=== PATIENT | male | born 1960 | race Caucasian/White ===

== ENCOUNTER → 2017-02-06 | Outpatient (CLI) | payer OTHER, SELFPAY | PROVIDERS: Visit Provider Nurse Practitioner Family | DX: Z79.899 Other long term (current) drug therapy (principal) | CPT/HCPCS: 80305 ==

== ENCOUNTER → 2017-02-11 | Outpatient (CLI) | payer OTHER, SELFPAY | PROVIDERS: Family Provider Emergency Medicine; Visit Provider Nurse Practitioner Family | DX: M25.511 Pain in right shoulder (principal) | CPT/HCPCS: 73030 ==

== ENCOUNTER → 2017-03-06 13:27 | Outpatient (CLI) | payer MEDICAID, SELFPAY ==
[2017-03-06 18:45] LABS: Amphetamine/Metha Screen,Urine Negative ng/mL (<1000); Barbiturates Screen,Urine Negative ng/mL (<200); Benzodiazepines Screen,Urine Positive ng/mL (200); Cannabinoid Screen,Urine Negative ng/mL (<50); Cocaine Screen,Urine Negative ng/g (<300); Methadone Screen,Urine Negative ng/mL (<300); Opiate Screen,Urine Negative ng/mL (<300); Phencyclidine Screen,Urine Negative ng/mL (<25)
== END ==
PROVIDERS: Visit Provider Nurse Practitioner Family
DX: Z79.899 Other long term (current) drug therapy (principal)
CPT/HCPCS: 80305

== ENCOUNTER → 2017-04-01 16:31 | Outpatient (REF) | payer MEDICAID, SELFPAY ==
[2017-04-01 18:56] LABS: Amphetamine/Metha Screen,Urine Negative ng/mL (<1000); Barbiturates Screen,Urine Negative ng/mL (<200); Benzodiazepines Screen,Urine Positive ng/mL (200); Cannabinoid Screen,Urine Negative ng/mL (<50); Cocaine Screen,Urine Negative ng/g (<300); Methadone Screen,Urine Negative ng/mL (<300); Opiate Screen,Urine Negative ng/mL (<300); Phencyclidine Screen,Urine Negative ng/mL (<25)
== END ==
LOC: LAB 16:31
PROVIDERS: Visit Provider Nurse Practitioner Family
DX: Z79.899 Other long term (current) drug therapy (principal)
CPT/HCPCS: 80305

== ENCOUNTER → 2017-04-28 11:31 | Outpatient (REF) | payer MEDICAID, SELFPAY ==
[2017-04-28 14:35] LABS: Amphetamine/Metha Screen,Urine Negative ng/mL (<1000); Barbiturates Screen,Urine Negative ng/mL (<200); Benzodiazepines Screen,Urine Positive ng/mL (200); Cannabinoid Screen,Urine Negative ng/mL (<50); Cocaine Screen,Urine Negative ng/g (<300); Methadone Screen,Urine Negative ng/mL (<300); Opiate Screen,Urine Negative ng/mL (<300); Phencyclidine Screen,Urine Negative ng/mL (<25)
== END ==
LOC: LAB 11:31
PROVIDERS: Visit Provider Nurse Practitioner Family
DX: Z79.899 Other long term (current) drug therapy (principal)
CPT/HCPCS: 80305

== ENCOUNTER → 2017-05-29 10:07 | Outpatient (CLI) | payer MEDICAID, SELFPAY ==
[2017-05-29 14:27] LABS: Amphetamine/Metha Screen,Urine Negative ng/mL (<1000); Barbiturates Screen,Urine Negative ng/mL (<200); Benzodiazepines Screen,Urine Positive ng/mL (200); Cannabinoid Screen,Urine Negative ng/mL (<50); Cocaine Screen,Urine Negative ng/g (<300); Methadone Screen,Urine Negative ng/mL (<300); Opiate Screen,Urine Negative ng/mL (<300); Phencyclidine Screen,Urine Negative ng/mL (<25)
== END ==
PROVIDERS: Visit Provider Nurse Practitioner Family
DX: Z79.899 Other long term (current) drug therapy (principal)
CPT/HCPCS: 80305

== ENCOUNTER → 2017-06-27 09:18 | Outpatient (CLI) | payer MEDICAID, SELFPAY ==
[2017-06-27 14:10] LABS: Amphetamine/Metha Screen,Urine Negative ng/mL (<1000); Barbiturates Screen,Urine Negative ng/mL (<200); Benzodiazepines Screen,Urine Positive ng/mL (200); Cannabinoid Screen,Urine Negative ng/mL (<50); Cocaine Screen,Urine Negative ng/g (<300); Methadone Screen,Urine Negative ng/mL (<300); Opiate Screen,Urine Negative ng/mL (<300); Phencyclidine Screen,Urine Negative ng/mL (<25)
== END ==
PROVIDERS: Visit Provider Nurse Practitioner Family
DX: Z79.899 Other long term (current) drug therapy (principal)
CPT/HCPCS: 80305

== ENCOUNTER → 2017-07-31 09:29 | Outpatient (REF) | payer MEDICAID, SELFPAY ==
[2017-07-31 15:25] LABS: Amphetamine/Metha Screen,Urine Negative ng/mL (<1000); Barbiturates Screen,Urine Negative ng/mL (<200); Benzodiazepines Screen,Urine Negative ng/mL (200); Cannabinoid Screen,Urine Negative ng/mL (<50); Cocaine Screen,Urine Negative ng/g (<300); Methadone Screen,Urine Negative ng/mL (<300); Opiate Screen,Urine Negative ng/mL (<300); Phencyclidine Screen,Urine Negative ng/mL (<25)
== END ==
LOC: LAB 09:29
PROVIDERS: Visit Provider Nurse Practitioner Family
DX: Z79.899 Other long term (current) drug therapy (principal)
CPT/HCPCS: 80305

== ENCOUNTER → 2017-08-26 14:01 | Outpatient (POV) | payer MEDICAID, SELFPAY | PROVIDERS: Family Provider Emergency Medicine; PCP Emergency Medicine; Visit Provider Internal Medicine | DX: Z00.00 Encounter for general adult medical examination without abnormal findings (principal) ==

== ENCOUNTER → 2017-09-15 12:56 | Outpatient (CLI) | payer MEDICAID, SELFPAY ==
[2017-09-15 03:45] VITALS: PULSE 57; PULSE 62
[2017-09-15 14:10] VITALS: BP 120/72; BP 130/78; PULSE 57; PULSE 69; RESP 16; RESP 18; O2SAT 94; O2SAT 97
--- NOTE | 2017-09-15 14:19 | CI_ITS ---
Cerebrovascular Exam Indications: 785.9 Bruit. IMPRESSIONS 1. The bilateral vertebral arteries are patent with normal antegrade flow. 2. Study suggests less than 20% stenosis involving the right internal carotid artery and the left internal carotid artery. History: Syncope. Risk factors: Current tobacco use. Carotid duplex study. Complete study and Doppler flow study including spectral analysis, color and su scale imaging. Location: Vascular laboratory. Patient status: Outpatient. Tables: Arterial flow: + +--------+--------+ Location V sys V ed + +--------+--------+ Right CCA - proximal 69.9cm/s 19.6cm/s + +--------+--------+ Right CCA - distal 78.6cm/s 22.8cm/s + +--------+--------+ Right ECA 76.2cm/s -------- + +--------+--------+ Right ICA - proximal 81.7cm/s 28.3cm/s + +--------+--------+ Right ICA - mid 114cm/s 40.1cm/s + +--------+--------+ Right ICA - distal 119cm/s 45.6cm/s + +--------+--------+ Right vertebral 51.1cm/s -------- + +--------+--------+ Left CCA - proximal 99.8cm/s 32.2cm/s + +--------+--------+ Left CCA - distal 81.7cm/s 22.8cm/s + +--------+--------+ Left ECA 74.6cm/s -------- + +--------+--------+ Left ICA - proximal 77cm/s 25.9cm/s + +--------+--------+ Left ICA - mid 93.5cm/s 32.2cm/s + +--------+--------+ Left ICA - distal 98.2cm/s 36.1cm/s + +--------+--------+ Left vertebral 59.7cm/s -------- + +--------+--------+ Velocity ratios: + + + + + + Right, V sys Right, V ed Left, V sys Left, V ed + + + + + + Max ICA/dist CCA 1.51 2 1.2 1.58 + + + + + + (Report amended ) Electronically signed by: Fito Burgos [id number]
== END ==
PROVIDERS: Family Provider Emergency Medicine; PCP Emergency Medicine; Visit Provider Internal Medicine
DX: R09.89 Other specified symptoms and signs involving the circulatory and respiratory systems (principal); R53.83 Other fatigue; J44.0 Chronic obstructive pulmonary disease with (acute) lower respiratory infection; F17.200 Nicotine dependence, unspecified, uncomplicated
CPT/HCPCS: 93880; 94060; 94618; 94640; 94726; 94729

== ENCOUNTER → 2017-09-22 15:14 | Outpatient (CLI) | payer MEDICAID, SELFPAY ==
--- NOTE | 2017-09-22 15:17 | CT_ITS ---
CT lung screening EXAM: CT LUNG LOW DOSE WO CONTRAST HISTORY: 57-year-old male, current smoker with greater than 30 pack-year smoking history asymptomatic ITS.REASON: CURRENT TOBACCO USE ORDERING PHYSICIAN: Aguilar Teague MD PATIENT AGE: 57 years COMPARISON: None TECHNIQUE: The exam was performed on a GE Light Speed [address] scanner using 2.90 mGy CTDI. A low dose helical CT CHEST was performed on a multi-detector scanner. All CT scans at the facility use one or more dose reduction, viz: automated exposure control, ma/kV adjustment per patient size (including targeted exams where dose is matched to indication, i.e. head), or iterative reconstruction technique. The LDCT was performed in a facility that meets the criteria for the screening program. Data regarding this exam was submitted to ACR which is an approved registry. The order for this exam indicates that it came as a result of a lung cancer screening counseling shard decision-making visit that included all the elements required of such a visit including smoking cessation. The radiologist interpreting this exam meets the CMS criteria for the LDCT lung cancer screening program. The exam is reported using the Lung-RADS classification scale and reported to the ACR registry. NOTE: This study was performed for the specific purposes of lung cancer screening and is not an alternative to diagnostic chest CT. RADIATION DOSE: CTDI vol(CT dose Index-volume) = 2.90mG DLP (Dose Length Product) = 107.74 mGcm FINDINGS: Centrilobular emphysema 6 mm noncalcified nodule central aspect right upper lobe. 3 mm noncalcified nodule along the minor fissure. 3 mm noncalcified nodule right upper lobe posteriorly. 5 mm noncalcified nodule central aspect left upper lobe 4 mm noncalcified nodule in the lingula. 3 mm noncalcified nodule in the lingula. 3 mm noncalcified nodule left lung base. Calcified granulomas present in the left lower lobe. IMPRESSION: 1. Lung RADS Category: 3, probably benign 2. Other findings: Centrilobular emphysema, old granulomatous disease RECOMMENDATIONS: 6 month LDCT follow-up
== END ==
PROVIDERS: Family Provider Emergency Medicine; PCP Emergency Medicine; Visit Provider Internal Medicine
DX: Z12.2 Encounter for screening for malignant neoplasm of respiratory organs (principal); Z87.891 Personal history of nicotine dependence

== ENCOUNTER → 2017-10-02 16:23 | Outpatient (REF) | payer MEDICAID, SELFPAY ==
[2017-10-02 18:16] LABS: Basophils % 0.7 % (0.1-2.0); Eosinophils # 0.3 K/mm3 (0.0-0.4); Eosinophils % 5.3 % (0.1-12.0); Hematocrit 40.8 % (42.0-52.0); Hemoglobin 13.5 g/dL (14.1-18.0); Lymphocytes # 2.4 K/mm3 (0.7-4.5); Lymphocytes % 41.3 K/mm3 (10-50); Mean Corpuscular HGB Conc 32.9 g/dL (31.8-35.4); Mean Corpuscular Hemoglobin 30.6 pg (27.0-31.2); Mean Corpuscular Volume 92.8 fl (80-94); Mean Platelet Volume 8.3 fl (7.4-10.4); Monocytes # 0.3 K/mm3 (0.1-1.0); Monocytes % 4.8 % (1.7-9.3); Neutrophils # 2.8 K/mm3 (1.8-7.8); Neutrophils % 47.9 % (37.0-80.0); Platelet Count 163 K/mm3 (142-424); White Blood Count 5.9 K/mm3 (4.8-10.8)
[2017-10-02 18:39] LABS: Alanine Aminotransferase 24 U/L (12-78); Albumin/Globulin Ratio 1.3 (1.1-1.8); Alkaline Phosphatase 60 U/L (46-116); Anion Gap 12.3 mEq/L (5-15); Aspartate Amino Transferase 17 U/L (15-37); Bilirubin,Total 0.3 mg/dL (0.2-1.0); Blood Urea Nitrogen 8 mg/dL (7-18); Calcium 8.9 mg/dL (8.5-10.1); Carbon Dioxide 29 mmol/L (21.0-32.0); Chloride 105 mmol/L (98-107); Chol/HDL Ratio 5.1 (1-3.5); Cholesterol 190 mg/dL (140-200); Creatinine,Serum 0.92 mg/dL (0.70-1.30); Estimated Glomerular Filt Rate 85 ml/min (>60); Free T4 (Free Thyroxine) 0.97 ng/dl (0.76-1.46); GFR (African American) 103 ML/MIN (>60); Glucose 86 mg/dL (74-106); HDL Cholesterol 37 mg/dL (27-67); LDL Cholesterol 132 mg/dL (0-130); Potassium 4.3 mmoL/L (3.5-5.1); Sodium 142 mmol/L (136-145); Thyroid Stimulating Hormone 1.53 uIU/ml (0.358-3.740); Triglycerides 105 mg/dL (30-200); VLDL Cholesterol 21 mg/dL (0-40)
[2017-10-02 18:43] LABS: Hemoglobin A1C 5.9 % (0.0-7.0)
[2017-10-04 18:40] LABS: Vitamin D 25 Hydroxy 50.3 ng/mL (30.0-100.0)
[2017-10-04 18:41] LABS: Vitamin B12 634 pg/mL (232-1245)
[2017-10-08 10:58] LABS: Testosterone,Free 3.4 pg/mL (7.2-24.0)
[2017-10-10 08:24] LABS: Testosterone, Total, LC/MS 646.1 ng/dL (264.0-916.0)
== END ==
LOC: LAB 16:23
PROVIDERS: Visit Provider Nurse Practitioner Family
DX: R53.83 Other fatigue (principal); M54.9 Dorsalgia, unspecified; R10.9 Unspecified abdominal pain; M79.604 Pain in right leg; M79.605 Pain in left leg
CPT/HCPCS: 80053; 80061; 82607; 82652; 83036; 84402; 84403; 84439; 84443; 85025

== ENCOUNTER → 2017-10-21 15:37 | Outpatient (POV) | payer MEDICAID, SELFPAY | PROVIDERS: Family Provider Emergency Medicine; PCP Emergency Medicine; Visit Provider Internal Medicine | DX: Z00.00 Encounter for general adult medical examination without abnormal findings (principal) ==

== ENCOUNTER → 2018-06-23 16:46 | Outpatient (CLI) | payer MEDICAID, SELFPAY ==
[2018-06-23 17:22] LABS: Basophils % 0.7 % (0.1-2.0); Eosinophils # 0.3 K/mm3 (0.0-0.4); Eosinophils % 4.6 % (0.1-12.0); Hematocrit 39.7 % (42.0-52.0); Hemoglobin 13.3 g/dL (14.1-18.0); Lymphocytes # 2.2 K/mm3 (0.7-4.5); Lymphocytes % 33.8 % (10-50); Mean Corpuscular HGB Conc 33.5 g/dL (31.8-35.4); Mean Corpuscular Volume 92.6 fl (80-94); Monocytes # 0.3 K/mm3 (0.1-1.0); Neutrophils # 3.6 K/mm3 (1.8-7.8); Neutrophils % 55.9 % (37.0-80.0); Platelet Count 182 K/mm3 (142-424); Red Blood Count 4.29 M/mm3 (4.60-6.20); Red Cell Distribution Width 12.9 % (11.5-17.5); White Blood Count 6.4 K/mm3 (4.8-10.8)
[2018-06-23 18:39] LABS: Erythrocyte Sedimentation Rate 10 mm/hr (0-20)
[2018-06-23 18:55] LABS: Chloride 105 mmol/L (98-107); Potassium 4.8 mmoL/L (3.5-5.1)
[2018-06-23 19:07] LABS: Alanine Aminotransferase 26 U/L (12-78); Albumin Level 4.2 gm/dL (3.4-5.0); Albumin/Globulin Ratio 1.4 (1.1-1.8); Alkaline Phosphatase 60 U/L (46-116); Anion Gap 11.8 mEq/L (5-15); Aspartate Amino Transferase 19 U/L (15-37); Bilirubin,Total 0.4 mg/dL (0.2-1.0); Blood Urea Nitrogen 9 mg/dL (7-18); Calcium 8.8 mg/dL (8.5-10.1); Carbon Dioxide 30 mmol/L (21.0-32.0); Creatinine,Serum 1.11 mg/dL (0.70-1.30); Estimated Glomerular Filt Rate 69 ml/min (>60); GFR (African American) 83 ML/MIN (>60); Globulin 3.1 gm/dl (1.3-3.2); Glucose 84 mg/dL (74-106); Sodium 142 mmol/L (136-145); Total Protein,Serum 7.3 gm/dL (6.4-8.2)
[2018-06-23 19:11] LABS: C-Reactive Protein < 0.2 mg/L (0.0-0.9)
[2018-06-25 14:24] LABS: Anti-Centromere B Antibodies <0.2 AI (0.0-0.9); Anti-Jo-1 <0.2 AI (0.0-0.9); Anti-Smith Antibody <0.2 AI (0.0-0.9); Antichromatin Antibodies <0.2 AI (0.0-0.9); Antiscleroderma-70 Antibodies <0.2 AI (0.0-0.9); RNP Antibodies 0.4 AI (0.0-0.9); Sjogren's Anti-SS-A <0.2 AI (0.0-0.9); Sjogren's Anti-SS-B <0.2 AI (0.0-0.9)
[2018-06-26 02:04] LABS: PTT-LA 39.2 sec (0.0-51.9); dRVVT 41.6 sec (0.0-47.0)
[2018-06-26 06:21] LABS: Anti-DNA (DS) Ab Qn <1 IU/mL (0-9); PSA, Free 0.25 ng/mL; Prostate Specific Ag 0.7 ng/mL (0.0-4.0); RA Latex Turbid. <10.0 IU/mL (0.0-13.9); Vitamin D 25 Hydroxy 36.4 ng/mL (30.0-100.0)
[2018-06-26 06:23] LABS: Lupus Reflex Interpretation Comment: (.)
[2018-06-27 09:12] LABS: Anti-Cyclic Citrullinated Pept <1 units (0-19)
== END ==
PROVIDERS: Visit Provider Nurse Practitioner Family
DX: F41.9 Anxiety disorder, unspecified (principal); R53.83 Other fatigue
CPT/HCPCS: 36415; 80053; 82652; 84153; 84154; 85025; 85613; 85651; 86140; 86200; 86225; 86235; 86431

== ENCOUNTER → 2018-08-06 11:05 | Outpatient (CLI) | payer MEDICAID, SELFPAY ==
--- NOTE | 2018-08-06 11:10 | XR_ITS ---
XR hip RT 2-3V w/pelvis HISTORY: ITS.REASON: hip pain ORDERING PHYSICIAN: Jacoby Hickey APRN PATIENT AGE: 58 years COMPARISON: None FINDINGS: No fracture or dislocation. No lytic or blastic change. There are minimal osteoarthritic changes. IMPRESSION: Minimal osteoarthritis otherwise negative
--- NOTE | 2018-08-06 11:10 | XR_ITS ---
EXAM: XR lumbar spine min 4V HISTORY: Low back pain ITS.REASON: hip pain ORDERING PHYSICIAN: Jacoby Hickey APRN PATIENT AGE: 58 years COMPARISON: 06/01/2008 FINDINGS: Normal alignment. No fracture or dislocation. No lytic or blastic change. There is mild chronic wedging of L3 similar to the previous exam with loss of height anteriorly of approximately 15%. Degenerative disc disease is present at L5-S1. No lytic or blastic change. IMPRESSION: Degenerative disc disease L5-S1. Mild chronic wedging of L3
[2018-08-06 11:48] LABS: Hematocrit 42.8 % (42.0-52.0); Hemoglobin 13.6 g/dL (14.1-18.0)
== END ==
PROVIDERS: PCP Emergency Medicine; Visit Provider Nurse Practitioner Family
DX: M79.604 Pain in right leg (principal); R53.83 Other fatigue; D64.9 Anemia, unspecified
CPT/HCPCS: 36415; 72110; 73502; 85014; 85018

== ENCOUNTER → 2018-08-19 13:09 | Outpatient (CLI) | payer MEDICAID, SELFPAY ==
--- NOTE | 2018-08-19 13:16 | CT_ITS ---
CT chest wo con HISTORY: Follow-up pulmonary nodules, smoker ITS.REASON: 6 mth f/u abn CT chest ORDERING PHYSICIAN: Jacoby Hickey APRN PATIENT AGE: 58 years COMPARISON: 09/22/2017 Technique: Axial images were obtained. Sagittal, and coronal reformatted images are also generated and reviewed. All CT scans at the facility use one or more dose reduction, viz: automated exposure control, ma/kV adjustment per patient size (including targeted exams where dose is matched to indication, i.e. head), or iterative reconstruction technique. FINDINGS: Scattered small nodes are present in the mediastinum which are not significant change. Normal heart size. No mediastinal or hilar mass. No central obstructing lesion. COPD with bronchial thickening. No change in the small scattered bilateral pulmonary nodular densities. Calcified granuloma is present in the superior segment of left lower lobe unchanged. No new nodules are evident. No effusions or infiltrates. There may be some small lymph nodes in the left para-aortic region the upper abdomen versus unopacified bowel. IMPRESSION: 1. Stable CT appearance of the chest. No change in small bilateral pulmonary nodules. Suggest continued 12 month follow-up in this patient with positive smoking history 2. COPD with bronchial thickening
== END ==
PROVIDERS: PCP Nurse Practitioner Family; Visit Provider Nurse Practitioner Family
DX: R91.8 Other nonspecific abnormal finding of lung field (principal)
CPT/HCPCS: 71250

== ENCOUNTER 2019-11-25 21:36 | Emergency (ER) | payer MEDICAID, SELFPAY ==
--- NOTE | 2019-11-25 21:40 | ECG_ITS ---
APPROVED REPORT Exam: Resting ECG HR:72 bpm ECG Measurements Heart Rate 72 AXES [place] 166 P 78 QRSd 78 QRS 74 QT 370 T 73 QTc 405 Conclusion Normal sinus rhythm Minimal voltage criteria for LVH, may be normal variant Borderline ECG Electronically signed by : Carlos Manuel Pagan, 11/26/2019 13:42:24
[2019-11-25 21:45] VITALS: BP 141/75; RESP 16; TEMP 36.8; O2SAT 98; BMI 24.1
--- NOTE | 2019-11-25 21:56 | XR_ITS ---
PROCEDURE: XR CHEST 2V CLINICAL HISTORY: chest discomfort COMPARISON: CR CXR CHEST(2 VIEWS-NOT PORTABLE) from 11/07/2015 CR CXR2 CHEST-AP VIEW ONLY from 12/07/2015 CR CXR CHEST(2 VIEWS-NOT PORTABLE) from 08/16/[address] ANGIO CHEST from 11/25/2019 FINDINGS: The cardiomediastinal silhouette and pulmonary vascularity are within normal limits. The lungs are clear without infiltrates, suspicious nodules, or pleural effusions. No acute bony abnormalities. IMPRESSION: No acute findings. Dictated by: Fito Burgos MD 11/26/2019 04:36 Fito Burgos MD in [place] 11/26/2019 04:36
[2019-11-25 22:05] LABS: Basophils # 0.1 K/mm3 (0-0.2); Basophils % 1.1 % (0.1-2.0); Chloride 104 mmol/L (98-107); Eosinophils # 0.4 K/mm3 (0.0-0.4); Eosinophils % 4.1 % (0.1-12.0); Hematocrit 41.4 % (42.0-52.0); Hemoglobin 12.8 g/dL (14.1-18.0); Lymphocytes # 2.8 K/mm3 (0.7-4.5); Lymphocytes % 32.7 % (10-50); Mean Corpuscular Hemoglobin 28.8 pg (27.0-31.2); Mean Corpuscular Volume 92.7 fl (80-94); Monocytes # 0.5 K/mm3 (0.1-1.0); Monocytes % 6.2 % (1.7-9.3); Neutrophils # 4.8 K/mm3 (1.8-7.8); Neutrophils % 55.9 % (37.0-80.0); Platelet Count 208 K/mm3 (142-424); Potassium 3.8 mmoL/L (3.5-5.1); Red Blood Count 4.47 M/mm3 (4.60-6.20); Red Cell Distribution Width 13.1 % (11.5-17.5); Sodium 140 mmol/L (136-145); White Blood Count 8.6 K/mm3 (4.8-10.8)
[2019-11-25 22:08] LABS: Anion Gap 11.8 mEq/L (5-15); Blood Urea Nitrogen 10 mg/dl (9-20); Calcium 9.2 mg/dl (8.4-10.2); Carbon Dioxide 28 mmol/L (22.0-30.0); Creatinine Clearance Estimated 84 mL/min (50-200); Estimated Glomerular Filt Rate 87 ml/min (>60); GFR (African American) 105 ML/MIN (>60); Glucose 96 mg/dl (74-100)
--- NOTE | 2019-11-25 22:20 | [facility].EDCP ---
ED Disposition Clinical Impression: Chest pain Qualifiers: Chest pain type: precordial pain Qualified Code(s): R07.2 - Precordial pain Disposition: Home, Self-Care Condition on Discharge: Good Instructions: DI for Atypical Chest Pain Additional Instructions: see card in am and pcp next week Referrals: PCP,No [Primary Care Provider] - - Critical Care Critical Care Time: No Attestation: On 11/25/19, the high probability of a clinically significant, sudden or life threatening deterioration of the following system(s) required my full and direct attention, intervention and personal management. The time I documented below is in addition to time spent performing reported procedures but includes the following listed in this critical care notation. Medical Decision Making - Medical Records Medical records reviewed: Yes: I reviewed the patient's medical records. - Luis Inquiry Pt receiving controlled substance: No Vital Signs: 11/25/19 21:45 11/25/19 22:43 11/26/19 00:02 Temperature 98.2 F Temperature Source Oral Pulse Rate [Left Radial] 66 69 Respiratory Rate 16 18 18 Blood Pressure [Right Arm] 141/75 H 127/62 116/59 L Blood Pressure Mean [Right Arm] 97 83 78 Blood Pressure Source [Right Arm] Automatic Cuff Blood Pressure Position [Right Arm] Sitting 02 Sat by Pulse Oximetry 98 94 L 94 L Oxygen Delivery Method Room Air Room Air - Lab Data Lab results reviewed: Yes: I reviewed the patient's lab results. Lab Results 11/25/19 21:52: WBC 8.6, RBC 4.47 L, Hgb 12.8 L, Hct 41.4 L, MCV 92.7, MCH 28.8, MCHC 31.0 L, RDW 13.1, Plt Count 208, MPV 8.0, Neut % (Auto) 55.9, Lymph % (Auto) 32.7, [place] % (Auto) 6.2, Eos % (Auto) 4.1, Baso % (Auto) 1.1, Neut # (Auto) 4.8, Lymph # (Auto) 2.8, [place] # (Auto) 0.5, Eos # (Auto) 0.4, Baso # (Auto) 0.1 11/25/19 21:52: Troponin I < 0.01 11/25/19 21:52: Sodium 140, Potassium 3.8, Chloride 104, Carbon Dioxide 28, Anion Gap 11.8, BUN 10, Creatinine 0.90, Estimated Creat Clear 84, Estimated GFR 87, Est GFR ( Amer) 105, Glucose 96, Calcium 9.2 Result diagrams: 11/25/19 21:52 11/25/19 21:52 Orders (Tests/Meds): ED MEDICATIONS Generic Name Dose Route Start Last Admin Trade Name Freq PRN Reason Stop Dose Admin Sodium Chloride 1,000 mls @ 999 mls/hr 11/25/19 23:45 11/25/19 23:55 Sod Chlor 0.9% 1000ml Bag IV 11/26/19 00:45 999 mls/hr .Q1H1M ALLEN Administration Sodium Chloride 1,000 mls @ 999 mls/hr 11/25/19 21:55 11/25/19 21:57 Sod Chlor 0.9% 1000ml Bag IV 11/25/19 22:55 999 mls/hr .Q1H1M ALLEN Administration Discontinued Medications Generic Name Dose Route Start Last Admin Trade Name Freq PRN Reason Stop Dose Admin Ioversol 70 ml 11/25/19 23:57 11/25/19 23:30 Ioversol-350 (74%) 100ml Vial IV 11/25/19 23:58 70 ml ONCE ONE Administration Protocol Methylprednisolone Sodium Succinate 125 mg 11/25/19 21:56 11/25/19 22:27 Methylprednisolone Sod Succ 125mg Vial IV 11/25/19 21:57 125 mg ONCE ONE Administration Sodium Chloride 40 ml 11/25/19 23:57 11/25/19 23:30 0.9 % Sodium Chloride 50 Ml Vial IV 11/25/19 23:58 40 ml ONCE ONE Administration Sodium Chloride 10 ml 11/25/19 23:57 11/25/19 23:30 Sodium Chloride 0.9% 10ml Syr (Rad Only) IV 11/25/19 23:58 10 ml ONCE ONE Administration ORDERS Category Date Time Status CT Chest w/PE protocol [CT angio chest] Stat Cat Scan 11/25/19 22:54 Taken Chest XR 2 view (NOT portable) [XR chest 2V] Stat Exams 11/25/19 21:56 Taken Covid-19 IgG/IgM (H) Stat Lab 11/25/19 23:57 Ordered Troponin I Q3H Lab 11/26/19 01:00 Ordered Troponin I Q3H Lab 11/26/19 04:00 Ordered - Radiology Data #1 Image(s): Chest Image Reviewed: Yes I reviewed the patient's radiology image Preliminary Findings: Normal/NAD - CT Data CT Scan: Chest Time Received: 00:[address] Reviewed: Yes: I have viewed the radiologist's interpretation Preliminary Findings: No
[2019-11-25 22:21] LABS: Troponin I < 0.01 ng/ml (0.00-0.034)
[2019-11-25 22:43] VITALS: BP 127/62; PULSE 66; RESP 18; O2SAT 94
--- NOTE | 2019-11-25 22:54 | CT_ITS ---
PROCEDURE: CT ANGIO CHEST CLINCIAL INDICATION: CHEST PAIN COMPARISON: CR XR CHEST 2V from 11/25/2019 TECHNIQUE: IV Contrast: 70ML OPTIRAY 350 Axial images obtained with sagittal and coronal reformats. All CT scans at the facility use one or more dose reduction, viz: automated exposure control, ma/kV adjustment per patient size (including targeted exams where dose is matched to indication, i.e. head), or iterative reconstruction technique. FINDINGS: HEART AND MEDIASTINAL STRUCTURES: No evidence of pulmonary embolus, aortic aneurysm, or aortic dissection. No mediastinal or hilar mass or adenopathy. LUNGS AND PLEURAL SPACES: No lobar consolidation or collapse. There is some mild diffuse bronchial thickening. The noncalcified 4 mm nodules present in the left upper lobe image 53 series 3 BONY STRUCTURES: No acute bony abnormalities apparent. UPPER ABDOMEN: Unremarkable. ADDITIONAL FINDINGS: No other significant abnormalities. IMPRESSION: No evidence of pulmonary embolus. Mild diffuse bronchial thickening suggesting bronchitis. 4 mm left upper lobe nodule. Consider six-month follow-up to confirm stability. Dictated by: Fito Burgos MD 11/26/2019 05:04 Fito Burgos MD in [place] 11/26/2019 05:04
[2019-11-26 00:02] VITALS: BP 116/59; PULSE 69; RESP 18; O2SAT 94
[2019-11-26 00:36] VITALS: BP 142/75; PULSE 73; RESP 16; TEMP 36.6; O2SAT 98
[2019-11-26 00:39] LABS: Chol/HDL Ratio 5.9 (1-3.5); Cholesterol 236 mg/dl (140-200); HDL Cholesterol 40 mg/dl (40-60); Triglycerides 152 mg/dl (30-150); VLDL Cholesterol 30 mg/dL (0-40)
[2019-11-26 00:43] LABS: Coronavirus 19 IgG Antibody Negative (Negative); Coronavirus 19 IgM Antibody Negative (Negative)
== END 2019-11-26 00:40 | disposition home or self-care (01) ==
PROVIDERS: Emergency Provider Emergency Medicine
DX: R07.2 Precordial pain (principal); J44.9 Chronic obstructive pulmonary disease, unspecified; F41.9 Anxiety disorder, unspecified; Z01.84 Encounter for antibody response examination; Z79.899 Other long term (current) drug therapy; F17.210 Nicotine dependence, cigarettes, uncomplicated
CPT/HCPCS: 71046; 71275; 80048; 80061; 84484; 85025; 86328; 93005; 96365; 96375; 99282; Q9967

== ENCOUNTER → 2020-03-31 17:29 | Outpatient (CLI) | payer MEDICAID, SELFPAY ==
[2020-03-31 18:31] LABS: Amphetamine/Metha Screen,Urine Negative ng/ml (<1000); Barbiturates Screen,Urine Negative ng/ml (<200)
[2020-03-31 18:32] LABS: Benzodiazepines Screen,Urine Negative ng/ml (<200)
[2020-03-31 18:33] LABS: Cannabinoid Screen,Urine Negative ng/ml (<50)
[2020-03-31 18:34] LABS: Cocaine Screen,Urine Negative ng/ml (<300)
[2020-03-31 18:35] LABS: Methadone Screen,Urine Negative ng/ml (<300)
[2020-03-31 18:36] LABS: Opiate Screen,Urine Negative ng/ml (<300); Phencyclidine Screen,Urine Negative ng/ml (<25)
== END ==
PROVIDERS: Visit Provider Emergency Medicine
DX: Z79.899 Other long term (current) drug therapy (principal)
CPT/HCPCS: 80305

== ENCOUNTER 2021-03-24 15:55 | Emergency (ER) | payer MEDICAID, SELFPAY ==
[2021-03-24 15:56] VITALS: BP 161/87; PULSE 85; RESP 20; TEMP 36.8; O2SAT 100; BMI 25.7
--- NOTE | 2021-03-24 16:17 | XR_ITS ---
PROCEDURE INFORMATION: Exam: XR Chest Exam date and time: 03/24/2021 4:17 PM Age: 60 years old Clinical indication: Shortness of breath; Additional info: SOA TECHNIQUE: Imaging protocol: XR of the chest. Views: 2 views. COMPARISON: CR XR CHEST 2V 11/25/2019 11:26 PM FINDINGS: Lungs: Mild pulmonary hyperinflation. Slightly coarsened central interstitial markings, and mild peribronchial thickening which appears greater on the right. Some tiny calcified granulomas suggested in the mid left lung field. No focal consolidation. Pleural spaces: Unremarkable. No significant pleural effusion. No pneumothorax. Heart/Mediastinum: The cardiac silhouette is normal. Bones/joints: There are spinal degenerative changes, with multilevel disc narrrowing and spondylosis. Soft tissues: No acute findings in the soft tissues. There appear to be overlying clothing artifacts or artifacts from a mask projected over the upper right mediastinum and lower right neck. IMPRESSION: 1. Slight pulmonary hyperinflation and chronic central peribronchial thickening, correlate for history of bronchitis. 2. No focal consolidation. 3. Additional nonemergency and chronic findings as above.
--- NOTE | 2021-03-24 16:17 | ECG_ITS ---
APPROVED REPORT Exam: Resting ECG HR:80 bpm ECG Measurements Heart Rate 80 AXES CA 164 P 50 QRSd 88 QRS 75 QT 322 T 77 QTc 358 Conclusion SINUS RHYTHM NONSPECIFIC T-WAVE ABNORMALITY BORDERLINE ECG UNCONFIRMED REPORT Electronically signed by : Carlos Manuel Pagan MD 03/25/2021 08:48:39
[2021-03-24 16:30] VITALS: BP 147/82; PULSE 86; RESP 22; O2SAT 97
[2021-03-24 16:59] LABS: Basophils # 0.1 K/mm3 (0-0.2); Basophils % 0.5 % (0.1-2.0); Eosinophils # 0.4 K/mm3 (0.0-0.4); Eosinophils % 3.5 % (0.1-12.0); Hematocrit 43.2 % (42.0-52.0); Hemoglobin 14.2 g/dL (14.1-18.0); Lymphocytes # 0.6 K/mm3 (0.7-4.5); Lymphocytes % 6.2 % (10-50); Mean Corpuscular HGB Conc 32.9 g/dL (31.8-35.4); Mean Corpuscular Hemoglobin 30.9 pg (27.0-31.2); Mean Platelet Volume 8.2 fl (7.4-10.4); Monocytes # 0.3 K/mm3 (0.1-1.0); Monocytes % 2.8 % (1.7-9.3); Neutrophils # 8.8 K/mm3 (1.8-7.8); Platelet Count 247 K/mm3 (142-424); Red Blood Count 4.59 M/mm3 (4.60-6.20); White Blood Count 10.1 K/mm3 (4.8-10.8)
[2021-03-24 17:01] LABS: MANUAL DIFFERENTIAL MANUAL DIFFERENTIAL (MANUAL DIFF)
[2021-03-24 17:04] LABS: Alanine Aminotransferase 16 U/L (12-78); Albumin Level 4.3 g/dl (3.5-5.0); Albumin/Globulin Ratio 1.4 (1.1-1.8); Alkaline Phosphatase 73 U/L (38-126); Anion Gap 10.3 mEq/L (5-15); Aspartate Amino Transferase 28 U/L (17-59); Bilirubin,Total 0.5 mg/dl (0.2-1.3); Blood Urea Nitrogen 10 mg/dl (9-20); Calcium 8.9 mg/dl (8.4-10.2); Carbon Dioxide 30 mmol/L (22.0-30.0); Chloride 100 mmol/L (98-107); Creatinine Clearance Estimated 100 mL/min (50-200); Estimated Glomerular Filt Rate 99 ml/min (>60); GFR (African American) 120 ML/MIN (>60); Globulin 3.1 g/dL (1.3-3.2); Glucose 96 mg/dl (74-100); Potassium 4.3 mmoL/L (3.5-5.1); Sodium 136 mmol/L (136-145); Total Protein,Serum 7.4 g/dl (6.3-8.2)
[2021-03-24 17:27] LABS: Troponin I < 0.01 ng/ml (0.00-0.034)
[2021-03-24 17:34] VITALS: BP 141/94; PULSE 85; RESP 16; O2SAT 90
[2021-03-24 18:19] LABS: Eosinophils % 2 % (0-3); Lymphocytes % 8 % (10-50); Monocytes % 9 % (2-9); Neutrophils % 80 % (42-76); Platelet Estimate Normal; Stomatocytes 1+; Total Cells Counted 100
--- NOTE | 2021-03-24 18:38 | HMH.EDGENADL ---
ED Disposition Clinical Impression: COPD exacerbation Disposition: Home, Self-Care Condition on Discharge: Good Prescriptions: Doxycycline Hyclate [Doxycycline Hyclate 100mg Tablet] 100 mg PO Q12 #14 tab Transmission Status: Received by [id number] methylPREDNISolone [Medrol 4mg tab] 4 mg PO DIRECTED #21 tab Transmission Status: Received by [facility] methylPREDNISolone [Medrol 4mg tab] 4 mg PO DIRECTED #21 tab Transmission Status: Received by [id number] Referrals: Jose Miguel Vieira MD [Primary Care Provider] - - Critical Care Critical Care Time: No Attestation: On 03/24/21, the high probability of a clinically significant, sudden or life threatening deterioration of the following system(s) required my full and direct attention, intervention and personal management. The time I documented below is in addition to time spent performing reported procedures but includes the following listed in this critical care notation. Medical Decision Making - Medical Records Medical records reviewed: Yes: I reviewed the patient's medical records. - Luis Inquiry Pt receiving controlled substance: No Vital Signs: 03/24/21 15:56 03/24/21 16:30 03/24/21 17:34 Temperature 98.3 F Temperature Source Oral Pulse Rate 86 85 Pulse Rate [Left Radial] 85 Respiratory Rate 20 22 16 Blood Pressure 147/82 H 141/94 H Blood Pressure [Right Arm] 161/87 H Blood Pressure Mean 103 110 Blood Pressure Mean [Right Arm] 111 Blood Pressure Source [Right Arm] Automatic Cuff Blood Pressure Position [Right Arm] Sitting 02 Sat by Pulse Oximetry 100 97 90 L Oxygen Delivery Method Room Air 03/24/21 18:55 Temperature 98.3 F Temperature Source Pulse Rate 81 Pulse Rate [Left Radial] Respiratory Rate 16 Blood Pressure 138/84 Blood Pressure [Right Arm] Blood Pressure Mean Blood Pressure Mean [Right Arm] Blood Pressure Source [Right Arm] Blood Pressure Position [Right Arm] 02 Sat by Pulse Oximetry Oxygen Delivery Method - Lab Data Lab Results 03/24/21 16:35: WBC 10.1, RBC 4.59 L, Hgb 14.2, Hct 43.2, MCV 94.0, MCH 30.9, MCHC 32.9, RDW 13.0, Plt Count 247, MPV 8.2, Neut % (Auto) 87.0 H, Lymph % (Auto) 6.2 L, [place] % (Auto) 2.8, Eos % (Auto) 3.5, Baso % (Auto) 0.5, Neut # (Auto) 8.8 H, Lymph # (Auto) 0.6 L, Jay # (Auto) 0.3, Eos # (Auto) 0.4, Baso # (Auto) 0.1, Total Counted 100, Neutrophils % (Manual) 80 H, Band Neutrophils % 1.0, Lymphocytes % (Manual) 8 L, Monocytes % (Manual) 9, Eosinophils % (Manual) 2, Platelet Estimate Normal, Stomatocytes 1+ 03/24/21 16:35: Sodium 136, Potassium 4.3, Chloride 100, Carbon Dioxide 30, Anion Gap 10.3, BUN 10, Creatinine 0.80, Estimated Creat Clear 100, Estimated GFR 99, Est GFR ( Amer) 120, Glucose 96, Calcium 8.9, Total Bilirubin 0.5, AST 28, ALT 16, Alkaline Phosphatase 73, Troponin I < 0.01, Total Protein 7.4, Albumin 4.3, Globulin 3.1, Albumin/Globulin Ratio 1.4 Result diagrams: 03/24/21 16:35 03/24/21 16:35 Orders (Tests/Meds): ED MEDICATIONS Discontinued Medications Generic Name Dose Route Start Last Admin Trade Name Nataliia PRN Reason Stop Dose Admin Albuterol/Ipratropium 3 ml 03/24/21 16:18 03/24/21 16:40 Ipratropium/Albuterol 3 Ml Neb IH 03/24/21 16:19 3 ml ONCE ONE Administration Ceftriaxone Sodium 1 gm/ 50 mls @ 100 mls/hr 03/24/21 17:30 03/24/21 17:30 Sodium Chloride IV 04/07/21 17:29 100 mls/hr Q24H ALLEN Administration Methylprednisolone Sodium Succinate 125 mg 03/24/21 16:19 03/24/21 16:39 Methylprednisolone Sod Succ 125mg Vial IV 03/24/21 16:20 125 mg ONCE ONE Administration Sodium Chloride 10 ml 03/24/21 16:17 Sodium Chloride 0.9% 10ml Flush Syringe IV 04/23/21 16:16 NEEDED PRN Maintain IV Site Medical Decision Narrative: Pt to the ED today for further evaluation of shortness of breath. DDx includes COPD exacerbation, pneumonia, CHF. Pt
[2021-03-24 18:55] VITALS: BP 138/84; PULSE 81; RESP 16; TEMP 36.8; O2SAT 90
== END 2021-03-24 18:57 | disposition home or self-care (01) ==
PROVIDERS: Emergency Provider Student in an Organized Health Care Education/Training Program; PCP Emergency Medicine
DX: J44.1 Chronic obstructive pulmonary disease with (acute) exacerbation (principal); F41.8 Other specified anxiety disorders; F17.210 Nicotine dependence, cigarettes, uncomplicated
CPT/HCPCS: 71046; 80053; 84484; 85007; 85025; 93005; 96365; 96375; 99283; J0696

== ENCOUNTER → 2021-04-11 14:35 | Outpatient (CLI) | payer MEDICAID, SELFPAY ==
[2021-04-10 13:41] LABS: Adenovirus,PCR Not Detected (NotDetected); Bordetella Pertussis Not Detected (NotDetected); Chlamydophila Pneumoniae, PCR Not Detected (NotDetected); Coronavirus 229E Not Detected (NotDetected); Coronavirus NL63 Not Detected (NotDetected); Coronavirus OC43 Not Detected (NotDetected); Coronovirus HKU1,PCR Not Detected (NotDetected); Human Metapneumovirus Not Detected (NotDetected); Influenza A, PCR Not Detected (NotDetected); Influenza AH1, 2009 Not Detected (NotDetected); Influenza AH1, PCR Not Detected (NotDetected); Influenza AH3,PCR Not Detected (NotDetected); Influenza B, PCR Not Detected (NotDetected); Mycoplasma Pneumoniae, PCR Not Detected (NotDetected); Parainfluenza 1, PCR Not Detected (NotDetected); Parainfluenza 2, PCR Not Detected (NotDetected); Parainfluenza 3, PCR Not Detected (NotDetected); Parainfluenza 4, PCR Not Detected (NotDetected); Respiratory Syncytial Virus Not Detected (NotDetected); Rhinovirus/Enterovirus Not Detected (NotDetected)
[2021-04-10 15:18] LABS: Coronavirus 19, PCR Detected (NotDetected)
== END ==
PROVIDERS: Visit Provider Emergency Medicine
DX: U07.1 COVID-19 (principal); R05.9 Cough, unspecified
CPT/HCPCS: 87581; 87632; 87798; C9803; U0003; U0005

== ENCOUNTER 2021-05-22 03:12 | Inpatient (IN) | payer MEDICAID, SELFPAY ==
[2021-05-22] VITALS (34 sets, daily range): BP systolic 89–172; BP diastolic 44–95; PULSE 60–97; RESP 14–24; TEMP 36.5–37; O2SAT 2–100; BMI 21.8; BMI 24.3; BMI 22.6
--- NOTE | 2021-05-22 | IR_ITS ---
APPROVED REPORT Patient Location: Inpatient [employer]: DEBBY Hines RT (R) PROCEDURES Left heart catheterization Left ventriculogram Selective coronary angiogram Drug-eluting stent deployment to the proximal mid dominant right coronary INDICATION Acute non-ST elevation myocardial infarction, Coronary artery disease, Abnormal echocardiogram Informed consent was obtained prior to the procedure. COMPLICATIONS NONE Estimated Blood Loss: LESS THAN 10 ML TECHNIQUE One percent lidocaine used to anesthetize the right anterior aspect of the wrist. The right radial artery was accessed via the Seldinger technique. A 6 Czech sheath was placed in the right radial artery. 2.5 mg of verapamil, 800 mcg of nitroglycerin, 1mg Lidocaine and 5000 U Heparin were given through the arterial sheath. The papa catheter was also used to perform left heart catheterization, left ventriculogram and selective coronary angiogram. At the end of the diagnostic procedure therapeutic heparin was administered giving a therapeutic ACT and the guide catheter was placed in the right coronary artery followed by a Choice PT extra-support wire. A 3 mm x 38 mm Xience drug-eluting stent was deployed at 24 chanelle reducing the stenosis to 0%. QUANG-3 flow was present before and after the procedure. At the end of procedure the apparatus was removed the sheath was removed and hemostasis was achieved using TR banding patient was transferred to the postop already in stable condition ANGIOGRAPHIC RESULTS The left main artery Normal The left anterior descending artery Normal The circumflex artery Nondominant with mild mid vessel 20% stenosis The right coronary artery Large dominant vessel and has a proximal concentric 70% stenosis The FIELD ventriculogram reveals Slightly dilated globally hypokinetic ejection fraction 35 to 40% The left ventricular end-diastolic pressure 25 mmHg IMPRESSION Severe single-vessel coronary disease as described above Successful stenting of the proximal to mid dominant right coronary severe disease reduced to 0% with 1 drug-eluting stent Global hypokinesis with reduced ejection fraction Elevated LVEDP PLAN 1. Brilinta 90 twice daily plus aspirin 81 mg daily 2. Start Entresto and beta-blockers 3. LDL less than 55 to be achieved with high intensity statin 4. Avoidance of tobacco products 5. Risk factor modification 6. Cardiac rehabilitation 7. Obtain an official echocardiogram to specifically measure ejection fraction Electronically signed by : Ancelmo Galindo MD 05/22/2021 16:05:17
--- NOTE | 2021-05-22 03:10 | XR_ITS ---
PROCEDURE INFORMATION: Exam: XR Chest Exam date and time: 05/22/2021 3:22 AM Age: 61 years old Clinical indication: Shortness of breath; Additional info: Shortness of air TECHNIQUE: Imaging protocol: XR of the chest. Views: 1 view. COMPARISON: CR XR CHEST 2V 03/24/2021 4:56 PM FINDINGS: Lungs: Unremarkable. No consolidation. There is no focal mass. Pleural spaces: Unremarkable. No pleural effusion. No pneumothorax. Heart/Mediastinum: Unremarkable. No cardiomegaly. Bones/joints: Unremarkable. There is no acute fracture present. IMPRESSION: No evidence for acute cardiac or pulmonary process.
[2021-05-22 03:17] LABS: ABG Base Excess -3.8 mmol/L (-2.4-2.3); ABG HCO3 24.7 mmhg (22.0-26.0); ABG Oxygen Saturation 97 % (90-100); ABG PO2 107.6 mmhg (80-100); ABG TCO2 26.9 mmhg (23-27)
[2021-05-22 03:18] LABS: Allen's Test Acceptable; Oxygen 2L %; Source Right Radial
[2021-05-22 03:19] LABS: ABG PCO2 69.5 mmhg (35.0-45.0); ABG PH 7.17 mmol/L (7.35-7.45)
--- NOTE | 2021-05-22 03:19 | ECG_ITS ---
APPROVED REPORT Exam: Resting ECG HR:90 bpm ECG Measurements Heart Rate 90 AXES ID 174 P 81 QRSd 76 QRS 80 QT 357 T 80 QTc 405 Conclusion SINUS RHYTHM SEPTAL MYOCARDIAL INFARCTION , PROBABLY OLD [40+ ms Q WAVE IN V1/V2] ABNORMAL ECG UNCONFIRMED REPORT Electronically signed by : Carlos Manuel Pagan MD 05/23/2021 17:35:07
[2021-05-22 03:25] LABS: Coronavirus 19, PCR Not Detected (NotDetected); Influenza A, PCR Not Detected (NotDetected); Influenza B, PCR Not Detected (NotDetected)
[2021-05-22 03:33] LABS: Alanine Aminotransferase 40 U/L (12-78); Albumin Level 4.4 g/dl (3.5-5.0); Albumin/Globulin Ratio 1.5 (1.1-1.8); Alkaline Phosphatase 65 U/L (38-126); Anion Gap 17.9 mEq/L (5-15); Aspartate Amino Transferase 54 U/L (17-59); Bilirubin,Total 0.4 mg/dl (0.2-1.3); Blood Urea Nitrogen 6 mg/dl (9-20); Calcium 8.8 mg/dl (8.4-10.2); Carbon Dioxide 27 mmol/L (22.0-30.0); Chloride 102 mmol/L (98-107); Creatinine Clearance Estimated 102 mL/min (50-200); Estimated Glomerular Filt Rate 99 ml/min (>60); GFR (African American) 120 ML/MIN (>60); Globulin 2.9 g/dL (1.3-3.2); Glucose 186 mg/dl (74-100); Potassium 3.9 mmoL/L (3.5-5.1); Sodium 143 mmol/L (136-145); Total Protein,Serum 7.3 g/dl (6.3-8.2)
[2021-05-22 03:37] LABS: Lactic Acid 5.1 mmol/L (0.7-2.1)
--- NOTE | 2021-05-22 03:37 | PC.NURSE ---
Lactic of 5.1 reported to
[2021-05-22 03:42] LABS: NT Pro Brain Natriuretic Pep. 122 pg/mL (0-125)
[2021-05-22 03:46] LABS: Troponin I 0.02 ng/ml (0.00-0.034)
[2021-05-22 03:51] LABS: Erythrocyte Sedimentation Rate 24 mm/hr (0-20); Procalcitonin 0.071 ng/mL (0.0-2.0)
[2021-05-22 03:53] LABS: Basophils # 0.2 K/mm3 (0-0.2); Basophils % 1.5 % (0.1-2.0); Eosinophils # 0.8 K/mm3 (0.0-0.4); Eosinophils % 6.4 % (0.1-12.0); Hematocrit 43.2 % (42.0-52.0); Hemoglobin 13.8 g/dL (14.1-18.0); Lymphocytes # 4.2 K/mm3 (0.7-4.5); Lymphocytes % 35.7 % (10-50); Mean Corpuscular HGB Conc 31.9 g/dL (31.8-35.4); Mean Corpuscular Volume 100.4 fl (80-94); Monocytes # 0.6 K/mm3 (0.1-1.0); Monocytes % 5.3 % (1.7-9.3); Neutrophils # 6.1 K/mm3 (1.8-7.8); Neutrophils % 51.2 % (37.0-80.0); Platelet Count 279 K/mm3 (142-424); Red Cell Distribution Width 14.1 % (11.5-17.5); White Blood Count 11.9 K/mm3 (4.8-10.8)
--- NOTE | 2021-05-22 05:17 | HMH.EDSOB ---
ED Disposition Clinical Impression: Acute exacerbation of chronic obstructive airways disease, Severe sepsis with acute organ dysfunction, Septic shock, Acute respiratory failure with hypercapnia, Tobacco use Disposition: Admitted As Inpatient Condition on Discharge: Serious - Critical Care Critical Care Time: No Attestation: On 05/22/21, the high probability of a clinically significant, sudden or life threatening deterioration of the following system(s) required my full and direct attention, intervention and personal management. The time I documented below is in addition to time spent performing reported procedures but includes the following listed in this critical care notation. Medical Decision Making - Medical Records Medical records reviewed: Yes: I reviewed the patient's medical records. - Luis Inquiry Pt receiving controlled substance: No Vital Signs: 05/22/21 03:07 05/22/21 03:10 05/22/21 03:20 Temperature 97.7 F Temperature Source Oral Pulse Rate 88 92 H Pulse Rate [Apical] 93 H Respiratory Rate 24 Blood Pressure Blood Pressure [Right Arm] 153/95 H Blood Pressure Mean [Right Arm] 114 02 Sat by Pulse Oximetry 97 Oxygen Delivery Method Non-Rebreather Oxygen Flow Rate (LPM) 05/22/21 04:00 05/22/21 04:30 05/22/21 05:00 Temperature Temperature Source Pulse Rate 82 87 84 Pulse Rate [Apical] Respiratory Rate 20 15 14 Blood Pressure 111/71 106/64 L 104/66 L Blood Pressure [Right Arm] Blood Pressure Mean [Right Arm] 02 Sat by Pulse Oximetry 96 96 96 Oxygen Delivery Method Nasal Cannula Nasal Cannula Nasal Cannula Oxygen Flow Rate (LPM) 2 2 2 05/22/21 05:30 Temperature Temperature Source Pulse Rate 97 H Pulse Rate [Apical] Respiratory Rate 18 Blood Pressure 119/80 Blood Pressure [Right Arm] Blood Pressure Mean [Right Arm] 02 Sat by Pulse Oximetry 92 L Oxygen Delivery Method Room Air Oxygen Flow Rate (LPM) - Lab Data Lab results reviewed: Yes: I reviewed the patient's lab results. Lab Results 05/22/21 03:10: WBC 11.9 H, RBC 4.30 L, Hgb 13.8 L, Hct 43.2, MCV 100.4 H, MCH 32.0 H, MCHC 31.9, RDW 14.1, Plt Count 279, MPV 10.0, Neut % (Auto) 51.2, Lymph % (Auto) 35.7, [place] % (Auto) 5.3, Eos % (Auto) 6.4, Baso % (Auto) 1.5, Neut # (Auto) 6.1, Lymph # (Auto) 4.2, [place] # (Auto) 0.6, Eos # (Auto) 0.8 H, Baso # (Auto) 0.2, ESR 24 H 05/22/21 03:10: Sodium 143, Potassium 3.9, Chloride 102, Carbon Dioxide 27, Anion Gap 17.9 H, BUN 6 L, Creatinine 0.80, Estimated Creat Clear 102, Estimated GFR 99, Est GFR ( Amer) 120, Glucose 186 H, Calcium 8.8, Total Bilirubin 0.4, AST 54, ALT 40, Alkaline Phosphatase 65, Troponin I 0.02, Total Protein 7.3, Albumin 4.4, Globulin 2.9, Albumin/Globulin Ratio 1.5, Procalcitonin 0.071 05/22/21 03:10: Specimen Source Right radial, O2 % 2l, ABG pH 7.17 L*, ABG pCO2 69.5 H, ABG pO2 107.6 H, ABG HCO3 24.7, ABG Total CO2 26.9, ABG O2 Saturation 97, ABG Base Excess -3.8 L, Fito Test Acceptable 05/22/21 03:10: Lactate 5.1 H 05/22/21 03:10: NT-Pro-B Natriuret Pep 122 05/22/21 03:10: SARS-CoV-2 (PCR) Not detected, Influenza A Untype (PCR) Not detected, Influenza Type B (PCR) Not detected 05/22/21 03:10: Magnesium 2.0 Result diagrams: 05/22/21 03:10 05/22/21 03:10 Orders (Tests/Meds): ED MEDICATIONS Generic Name Dose Route Start Last Admin Trade Name Freq PRN Reason Stop Dose Admin Sodium Chloride 2,050 mls @ 1,025 mls/hr 05/22/21 03:43 05/22/21 03:44 Sod Chlor 0.9% 1000ml Bag 30 ml/kg infuse over 2 hr (2050 ml) 05/22/21 05:42 1,025 mls/hr IV Administration .Q2H ONE Azithromycin 500 mg/ Sodium 250 mls @ 250 mls/hr 05/22/21 05:30 Chloride IV 06/05/21 05:29 Q24H ALLEN Ceftriaxone Sodium 1 gm/ 50 mls @ 100 mls/hr 05/22/21 05:30 05/22/21 05:30 Sodium Chloride IV 06/05/21 05:29 100 mls/hr Q24H ALLEN Administration Discontinued Medications Generic Name Dose Route Start Last Admin Trade
--- NOTE | 2021-05-22 05:24 | PC.NURSE ---
Pt placed on RA o2 96% prior on 2lnc
[2021-05-22 05:37] LABS: ABG Base Excess -1.7 mmol/L (-2.4-2.3); ABG HCO3 24.5 mmhg (22.0-26.0); ABG Oxygen Saturation 87 % (90-100); ABG PCO2 49.6 mmhg (35.0-45.0); ABG PH 7.31 mmol/L (7.35-7.45); ABG PO2 55.1 mmhg (80-100)
--- NOTE | 2021-05-22 05:37 | PC.NURSE ---
Addendum entered by Frantz Schrader RN 05/22/21 05:49: correction 2LNC Original Note: Pt placed on 1LNC d/t O2 sat of 90% on RA
--- NOTE | 2021-05-22 05:40 | PC.NURSE ---
Attempted to call report at this time. Receiving RN will call back.
[2021-05-22 05:43] LABS: Allen's Test Acceptable; Oxygen room air %; Source Right Radial
--- NOTE | 2021-05-22 05:59 | PC.NURSE ---
Report given to NILAY Dominguez at this time
--- NOTE | 2021-05-22 06:16 | PC.NURSE ---
PT ARRIVED TO FLOOR VIA STRETCHER FROM ED W/STAFF @ [id number]
[2021-05-22 06:41] LABS: Troponin I 1.71 ng/ml (0.00-0.034)
--- NOTE | 2021-05-22 06:48 | PC.NURSE ---
PRANAV RIZZO NOTIFIED OF CONSULT.
--- NOTE | 2021-05-22 07:00 | CA_ITS ---
APPROVED REPORT EXAM: Comprehensive 2D, Doppler, and color-flow Echocardiogram Manager Photography: Ashli Jorgensen CRT Ht: 5 ft 8 in Wt: 160lbs BSA: 1.86 BP: 119/80 mmHg Indications: COPD, Murmur, Shortness of Breath, smoker, increased trop 2D Dimensions LVOT 1.93 cm (M/F) 1.5-2.5 LA Volume 28.00 mL LA Volume Index 15.10 mL/m2 (M/F) 16-34 M-Mode Dimensions RVDd 1.78 cm (0.9-2.6) LA Diam 2.38 cm (1.9-4.0) LVDd 5.00 cm (3.5-5.7) Ao Diam 4.40 cm (2.0-3.7) LVDs 3.56 cm (3.5-5.7) IVSd 1.13 cm (0.6-1.1) PWd 0.94 cm (0.6-1.1) EF (Teich) 55.20% FS 28.80% EDV (Teich) 118.20 mL TAPSE 1.49 (<1.7) ESV (Teich) 53.00 mL LV Diastology E Decel Time 143.00 (160-240 msec) E/A Ratio 1.49 MED E' 9.30 (< 7 cm/sec) MED A' 12.40 cm/s E'/MED E' Ratio 8.26 (>14) LAT E' 10.70 (<10 cm/sec) LAT A' 13.90 cm/s E/LAT E' Ratio 7.18 (>14) Aortic Valve AO Peak GR. 7.80 mmHg Mitral Valve MV E Max [place]. 77.00 (40-130 cm/s) MV A Velocity 51.00 (40-130 cm/s) E/A Ratio 1.49 MV Decel. Time 143.00 (160-240 ms) MV PHT 42.00 ms Pulmonary Valve PV Peak Velocity 87.00 (50-150 cm/s) Tricuspid Valve TR P. Velocity 112.00 cm/s RAP Estimate 10.00 mmHg RVSP 15.00 mmHg Left Ventricle Left atrium is normal size, left ventricle is normal size, visually estimated ejection fraction approximately 40%, there is marked hypokinesis involving the mid intraventricular septum. Diastolic parameters are within normal range. Right Ventricle Right atrium and right ventricle are normal size and contractility. Aortic Valve Aortic valve is minimally thickened and fibrosed, there is no aortic stenosis or aortic insufficiency. Mitral Valve Mitral valve is grossly normal, there is trace mitral regurgitation. Tricuspid Valve Tricuspid valve grossly normal, there is trace tricuspid regurgitation, tricuspid regurgitation jet velocity is inadequate for calculation of the right ventricular systolic pressure. Pulmonic Valve Pulmonic valve is poorly visualized. Great Vessels Aortic root is normal size. Inferior vena cava is poorly visualized. Pericardium No significant pericardial effusion noted. Conclusion 1. Technically difficult study. Normal left ventricular size, estimated ejection fraction 40% with segmental wall motion abnormality described above. Diastolic parameters are within normal range. 2. Trace mitral and tricuspid regurgitation. 3. No significant pericardial effusion noted. 4. Inferior vena cava is poorly visualized. Electronically signed by : Rcio Perez MD 05/22/2021 19:06:29
--- NOTE | 2021-05-22 07:08 | HMH.CNCARD ---
History of Present Illness Consult date: 05/22/21 Requesting physician: Jose Miguel Vieira Consult reason: chest pain, shortness of breath Chief complaint: NSTEMI, COPD exacerbation Additional Medical History:: 1. Long-term tobacco user A. COPD 2. Depression 3. History of seizures 4. Asthma History of present illness: EMS called out for respiratory distress. Pt unable to give much information at time of arrival d/t SOA. He states he has been feeling bad for a few weeks . He is A&Ox4. Lungs wheezy throughout. Audible expiratory wheezing. Pt arrived on non-rebreather. EMS states he had an O2 sat of 73% when they arrived at pt's residence and where able to get him to 96% on non-rebreather. Pt arrives pale and diaphoretic. The above per MICROBIOLOGICAL ANALYST pt with hx of tob use and copd with progressive sob over the last week and brought by ems for eval and treatment The above per Dr. Vieira Patient relates increasing shortness of breath over the last 2 to 4 weeks with sudden increase in shortness of breath and air hunger last night. He denies any chest pain, pressure but does note chest tightness. He denies any prior cardiac history. He does not take medication for blood pressure, diabetes or dyslipidemia. Work-up in the ER included EKG which showed sinus rhythm and poor R wave progression anteriorly with concern for old [place]. No acute ST segment changes were noted. Initial troponin was normal but follow-up troponin markedly elevated and patient was admitted for further evaluation. Cardiology consulted for evaluation and recommendations. [facility] History Medical History: Reports:: Anxiety, Asthma, Chronic Obstructive Pulmonary Disease (COPD), Depression, Seizures Denies:: Cancer, Diabetes Mellitus Type 1, Diabetes Mellitus Type 2, MRSA *Have you ever received a pneumonia vaccine?: No *Have you received a flu vaccine this season?: No Laterality Cases: Bilateral: Other Other Surgeries: Yes: No Previous Surgery, Other Amputation: No Fractures: Yes (Rt Foot Fracture) - *Social History Smoking Status: Current some day smoker Tobacco Type: cigarettes # Packs/Day (cigarettes): 1 #Yrs smoked (if former smoker): 40 Alcohol Intake: never Alcohol Intake Frequency:: holidays/special occasions only Substance Use Type: opiates, prescription drug, former substance user *Occupational Status:: employed Housing: house Household Members: none *Travel in the last 8 weeks: Inside the [place] - Psychiatric History Pschychiatric History:: Reports:: Anxiety, Depression Family Hx:: Cancer, Heart Attack Meds Home Medications Medication Instructions Recorded Confirmed Type albuterol sulfate 90 mcg/actuation 2 puff INHALATION Q4-6H PRN #8.5 g 12/25/20 05/22/21 Rx aerosol inhaler buprenorphine 8 mg-naloxone 2 mg 2 tab SUBLINGUAL DAILY tab 01/02/21 05/22/21 History sublingual tablet ipratropium 0.5 mg-albuterol 3 mg 3 ml INHALATION Q4-6H PRN #180 ml 04/10/21 05/22/21 Rx (2.5 mg base)/3 mL nebulization soln Cariprazine HCl [Vraylar] 1.5 mg PO DAILY 05/22/21 05/22/21 History Fluticasone/Vilanterol [Breo 1 inh INHALATION DAILY 05/22/21 05/22/21 History Ellipta 100-25 Mcg INH] Gabapentin 600 mg PO TID 05/22/21 05/22/21 History Omeprazole 40 mg PO DAILY 05/22/21 05/22/21 History Venlafaxine HCl [Effexor XR 150mg] 150 mg PO DAILY 05/22/21 05/22/21 History Venlafaxine HCl [Effexor Xr] 75 mg PO DAILY 05/22/21 05/22/21 History hydrOXYzine pamoate [Vistaril] 25 mg PO TID PRN 05/22/21 05/22/21 History Allergies Allergy/AdvReac Type Severity Reaction Status Date / Time No Known Allergies Allergy Verified 05/04/21 13:59 Exam Vital signs and Labs for Last 24 Hours: Temp Pulse Resp BP Pulse Ox 98.4 F 93 H 20 110/76 97 05/22/21 06:39 05/22/21 06:39 05/22/21 06:39 05/22/21 06:39 05/22/21 06:39 Laboratory Results - last 24 hr 05/22/21 03:10: WBC 11.9 H, RBC 4.30 L, Hgb 13.8 L, Hct 43.2, MCV 100.4 H, MCH 32.0 H, MCHC 31.
--- NOTE | 2021-05-22 07:10 | HMH.PHAVTE ---
[facility] Pharmacy VTE Monitoring - Patient Demographics Admission date: 05/22/21 Report Date: 05/22/21 Time: 07:10 Allergies/Adverse Reactions: Patient Allergies No Known Allergies Allergy (Verified 05/04/21 13:59) Height: 1.73 m Weight: 67.721 kg Patient Problems: Current Active Problems Acute exacerbation of chronic obstructive airways disease (Acute) Severe sepsis with acute organ dysfunction (Acute) Septic shock (Acute) Acute respiratory failure with hypercapnia (Acute) Tobacco use (Acute) - VTE Risk Labs: VTE Related Lab Results Hgb 13.8 g/dL (14.1-18.0) L 05/22/21 03:10 Hct 43.2 % (42.0-52.0) 05/22/21 03:10 Plt Count 279 K/mm3 (142-424) 05/22/21 03:10 BUN 6 mg/dl (9-20) L 05/22/21 03:10 Creatinine 0.80 mg/dl (0.66-1.25) 05/22/21 03:10 Estimated Creat Clear 102 mL/min (50-200) 05/22/21 03:10 Was VTE Risk Assessment Performed: Yes VTE Score: 4 VTE Risk Level: Low Risk - Prophylaxis VTE Prophylaxis Ordered?: Yes Types of VTE Prophylaxis: TEDS Knee High Location of Applied Device: Bilateral Lower Extremeties
[2021-05-22 07:25] LABS: Reflex Lactic Add Lactic Reflex
--- NOTE | 2021-05-22 07:25 | HMH.PHAINT ---
Using information provided from the patient, the patient's PBM claim history, and most recent med-rec from her physician's office, home medication list was verified.
[2021-05-22 07:55] LABS: Lactic Acid Follow Up (RFLX 1) 1.7 mmol/L (0.7-2.1)
--- NOTE | 2021-05-22 09:13 | HMH.PULMCON ---
*Admission Date: 05/22/21 *Reason for consult:: Acute hypoxic hypercarbic respiratory failure *History of present illness: Mr. Magana is a 61-year-old male current smoker greater than [id number] smoking history carries a diagnosis COPD however only using albuterol inhaler/DuoNebs on a as needed basis using them twice a day up until for the last weeks where he noted worsening respiratory symptoms associated with worsening cough and productive phlegm increasing frequency of nebulized therapies to 3-4 times a day with no significant improvement in his symptoms eventually presented to the hospital and found to be in severe hypercarbia and pulmonary was called for further management. Seen this morning on examination admits significant improvement in his symptoms since presentation. [facility] History Medical History: Reports:: Anxiety, Asthma, Chronic Obstructive Pulmonary Disease (COPD), Depression, MRSA, Seizures Denies:: Cancer, Diabetes Mellitus Type 1, Diabetes Mellitus Type 2 *Have you ever received a pneumonia vaccine?: No *Have you received a flu vaccine this season?: No Laterality Cases: Bilateral: Other Other Surgeries: Yes: No Previous Surgery, Other Amputation: No Fractures: Yes (Rt Foot Fracture) - *Social History Last grade of school completed: 7th or 8th Smoking Status: Current every day smoker Tobacco Type: cigarettes # Packs/Day (cigarettes): 1 #Yrs smoked (if former smoker): 40 Alcohol Intake: never Alcohol Intake Frequency:: holidays/special occasions only Substance Use Type: painkillers *Occupational Status:: employed Housing: other Household Members: children *Travel in the last 8 weeks: None - Psychiatric History Pschychiatric History:: Reports:: Anxiety, Depression Family Hx:: Cancer, Heart Attack ROS - Cons Reports body ache(s) - Eyes Reports blurry vision - ENT Denies ear discharge, Denies nosebleed - Card Reports shortness of breath, Reports shortness of breath with activity - Resp Respiratory: Reports change in phlegm color, Reports chest congestion, Reports cough, Reports dyspnea on exertion, Denies coughing up blood, Denies pain on inspiration, Denies pain with cough, Reports cough with sputum production, Denies pain with breathing - GI Gastrointestingal: Denies: abdominal pain - [place] Musculoskeletal: Reports back pain - Psych Denies sensing things others do not sense, Denies thoughts of hurting/killing others, Denies thoughts of hurting/killing yourself Meds Home Medications Medication Instructions Recorded Confirmed Type albuterol sulfate 90 mcg/actuation 2 puff INHALATION Q4-6H PRN #8.5 g 12/25/20 05/22/21 Rx aerosol inhaler buprenorphine 8 mg-naloxone 2 mg 2 tab SUBLINGUAL DAILY tab 01/02/21 05/22/21 History sublingual tablet ipratropium 0.5 mg-albuterol 3 mg 3 ml INHALATION Q4-6H PRN #180 ml 04/10/21 05/22/21 Rx (2.5 mg base)/3 mL nebulization soln Cariprazine HCl [Vraylar] 1.5 mg PO DAILY 05/22/21 05/22/21 History Fluticasone/Vilanterol [Breo 1 inh INHALATION DAILY 05/22/21 05/22/21 History Ellipta 100-25 Mcg INH] Gabapentin 600 mg PO TID 05/22/21 05/22/21 History Omeprazole 40 mg PO DAILY 05/22/21 05/22/21 History Venlafaxine HCl [Effexor XR 150mg] 150 mg PO DAILY 05/22/21 05/22/21 History Venlafaxine HCl [Effexor Xr] 75 mg PO DAILY 05/22/21 05/22/21 History hydrOXYzine pamoate [Vistaril] 25 mg PO TID PRN 05/22/21 05/22/21 History Allergies Allergy/AdvReac Type Severity Reaction Status Date / Time No Known Allergies Allergy Verified 05/04/21 13:59 Exam - Constitutional Constitutional:: Present: no acute distress, comfortable - HENNV Exam HENNV: Present: normocephalic, atraumatic - Eye Exam Eyes:: Present: normal appearance both eyes and related structures - Neck Exam Neck:: Present: normal visual inspection - Respiratory Exam Respiratory:: Present: able to speak in complete sentences, no respiratory distress, wheezing - Cardiovascula
--- NOTE | 2021-05-22 09:27 | HMH.HP ---
*Admission Date: 05/22/21 *Chief complaint: sob *History of present illness: this patient with progressive sob sx over the last few days and presented to ed per ems in resp failure - pt was found to have acute copd and responded to treatment and had elevated card enz and was admitted for pul and card care [facility] History I have reviewed the patient's past medical history: Yes Medical History: Reports:: Anxiety, Asthma, Chronic Obstructive Pulmonary Disease (COPD), Depression, MRSA, Seizures Denies:: Cancer, Diabetes Mellitus Type 1, Diabetes Mellitus Type 2 *Have you ever received a pneumonia vaccine?: No *Have you received a flu vaccine this season?: No Laterality Cases: Bilateral: Other Other Surgeries: Yes: No Previous Surgery, Other Amputation: No Fractures: Yes (Rt Foot Fracture) - *Social History Last grade of school completed: 7th or 8th Smoking Status: Current every day smoker Tobacco Type: cigarettes # Packs/Day (cigarettes): 1 #Yrs smoked (if former smoker): 40 Alcohol Intake: never Alcohol Intake Frequency:: holidays/special occasions only Substance Use Type: painkillers *Occupational Status:: employed Housing: other Household Members: children *Travel in the last 8 weeks: None - Psychiatric History Pschychiatric History:: Reports:: Anxiety, Depression Family Hx:: Cancer, Heart Attack Review of Systems - Review of Systems Review of systems:: pertinent systems reviewed and negative unless documented below - Constitutional Reports weakness, Denies fever(s) - Eyes Denies change in vision - ENT Denies sore throat - *Cardiovascular Reports chest pain, Reports chest pain at rest, Reports shortness of breath - *Respiratory Reports cough, Reports shortness of breath, Denies coughing up blood - *Gastrointestinal Denies abdominal pain - *Genitourinary Denies blood in urine - *Musculoskeletal Denies joint pain - Integumentary/Breasts Denies rash - *Neurologic Reports weakness, Denies localized weakness, Denies seizure-like activity - Psychiatric Denies behavioral changes Meds Home Medications Medication Instructions Recorded Confirmed Type albuterol sulfate 90 mcg/actuation 2 puff INHALATION Q4-6H PRN #8.5 g 12/25/20 05/22/21 Rx aerosol inhaler buprenorphine 8 mg-naloxone 2 mg 2 tab SUBLINGUAL DAILY tab 01/02/21 05/22/21 History sublingual tablet ipratropium 0.5 mg-albuterol 3 mg 3 ml INHALATION Q4-6H PRN #180 ml 04/10/21 05/22/21 Rx (2.5 mg base)/3 mL nebulization soln Cariprazine HCl [Vraylar] 1.5 mg PO DAILY 05/22/21 05/22/21 History Fluticasone/Vilanterol [Breo 1 inh INHALATION DAILY 05/22/21 05/22/21 History Ellipta 100-25 Mcg INH] Gabapentin 600 mg PO TID 05/22/21 05/22/21 History Omeprazole 40 mg PO DAILY 05/22/21 05/22/21 History Venlafaxine HCl [Effexor XR 150mg] 150 mg PO DAILY 05/22/21 05/22/21 History Venlafaxine HCl [Effexor Xr] 75 mg PO DAILY 05/22/21 05/22/21 History hydrOXYzine pamoate [Vistaril] 25 mg PO TID PRN 05/22/21 05/22/21 History Allergies Allergy/AdvReac Type Severity Reaction Status Date / Time No Known Allergies Allergy Verified 05/04/21 13:59 Exam Vital signs and Labs for Last 24 Hours: Temp Pulse Resp BP Pulse Ox 98 F 89 18 102/66 L 96 05/22/21 08:00 05/22/21 08:00 05/22/21 08:00 05/22/21 08:00 05/22/21 08:00 Laboratory Results - last 24 hr 05/22/21 03:10: WBC 11.9 H, RBC 4.30 L, Hgb 13.8 L, Hct 43.2, MCV 100.4 H, MCH 32.0 H, MCHC 31.9, RDW 14.1, Plt Count 279, MPV 10.0, Neut % (Auto) 51.2, Lymph % (Auto) 35.7, [place] % (Auto) 5.3, Eos % (Auto) 6.4, Baso % (Auto) 1.5, Neut # (Auto) 6.1, Lymph # (Auto) 4.2, [place] # (Auto) 0.6, Eos # (Auto) 0.8 H, Baso # (Auto) 0.2, ESR 24 H 05/22/21 03:10: Sodium 143, Potassium 3.9, Chloride 102, Carbon Dioxide 27, Anion Gap 17.9 H, BUN 6 L, Creatinine 0.80, Estimated Creat Clear 102, Estimated GFR 99, Est GFR ( Amer) 120, Glucose 186 H, Calcium 8.8, Total Bilirubin 0.4, AST
[2021-05-22 09:36] LABS: Troponin I 2.52 ng/ml (0.00-0.034)
--- NOTE | 2021-05-22 09:42 | PC.NURSE ---
Called and spoke with Phuong at primary clinic and reported critical troponin of 2.52 @ 0941.
--- NOTE | 2021-05-22 14:58 | PC.NURSE ---
Addendum entered by Milan Ovalle RN 05/22/21 14:58: Pt was clipped prior to going to cardiac cath technician. Original Note: Pt to cardiac cath technician at this time.
--- NOTE | 2021-05-22 21:02 | PC.NURSE ---
2000- 2ML OF AIR REMOVED FROM WRISTLET, SITE WNL 2030-2ML OF AIR REMOVED FROM WRISTLET, SITE WNL 2103- 2ML OF AIR REMOVED FORM WRISTLET, SITE WNL
[2021-05-23] VITALS: PULSE 60
--- NOTE | 2021-05-23 00:05 | PC.NURSE ---
LATE ENTRY: REMOVED PT'S WRISTLET AT 2330, PT TOLERATED WELL, TELFA AND TEGADERM PLACED TO SITE. WILL MONITOR CLOSELY
--- NOTE | 2021-05-23 03:39 | PC.NURSE ---
PT HAS RESTED WELL THIS SHIFT. VS REMAIN STABLE CHARTED. RIGHT WRIST ACCESS S/P CARDIAC CATHETERIZATION REMAINS WNL WITHOUT S/SX OF BLEEDING OR INFECTION. TELF AND TEGADERM DRESSING REMAINS INTACT TO SITE. PT HAS HAD EPISODES OF COUGHING THROUGHOUT THE NIGHT THAT IMPROVES AFTER SOLUMEDROL AND ALBUTEROL TREATMENTS. WILL CONTINUE TO MONITOR.
[2021-05-23 04:00] VITALS: BP 108/59; PULSE 60; PULSE 79; RESP 16; TEMP 36.7; O2SAT 92
[2021-05-23 06:03] VITALS: PULSE 91; PULSE 95; O2SAT 94
[2021-05-23 06:58] LABS: Basophils % 0.1 % (0.1-2.0); Hematocrit 38.5 % (42.0-52.0); Hemoglobin 12.5 g/dL (14.1-18.0); Lymphocytes # 0.8 K/mm3 (0.7-4.5); Lymphocytes % 4.4 % (10-50); Mean Corpuscular HGB Conc 32.4 g/dL (31.8-35.4); Mean Corpuscular Hemoglobin 31.4 pg (27.0-31.2); Mean Corpuscular Volume 97.1 fl (80-94); Monocytes # 0.4 K/mm3 (0.1-1.0); Monocytes % 2.3 % (1.7-9.3); Neutrophils # 15.8 K/mm3 (1.8-7.8); Neutrophils % 93.1 % (37.0-80.0); Platelet Count 247 K/mm3 (142-424); Red Blood Count 3.97 M/mm3 (4.60-6.20); Red Cell Distribution Width 14.4 % (11.5-17.5)
[2021-05-23 07:03] LABS: Chloride 113 mmol/L (98-107); Sodium 141 mmol/L (136-145)
[2021-05-23 07:04] LABS: Potassium 3.6 mmoL/L (3.5-5.1)
[2021-05-23 07:06] LABS: Blood Urea Nitrogen 13 mg/dl (9-20); Creatinine Clearance Estimated 109 mL/min (50-200); Estimated Glomerular Filt Rate 115 ml/min (>60); GFR (African American) 140 ML/MIN (>60); MANUAL DIFFERENTIAL MANUAL DIFFERENTIAL (MANUAL DIFF)
[2021-05-23 07:07] LABS: Anion Gap 7.6 mEq/L (5-15); Calcium 7.8 mg/dl (8.4-10.2); Carbon Dioxide 24 mmol/L (22.0-30.0); Glucose 145 mg/dl (74-100)
[2021-05-23 07:11] LABS: CATHL Activated Clotting Time 293 SEC (74-125)
[2021-05-23 08:00] VITALS: BP 118/47; PULSE 59; RESP 18; TEMP 36.6; O2SAT 98
[2021-05-23 08:04] LABS: Lymphocytes % 5 % (10-50); Monocytes % 2 % (2-9); Neutrophils % 90 % (42-76); Platelet Estimate Normal; RBC Morphology Normal; Total Cells Counted 100
--- NOTE | 2021-05-23 08:33 | HMH.PNCARD ---
Subjective Date: 05/23/21 Time: 08:33 Principal diagnosis: NSTEMI, Cardiomyopathy Interval history: 61-year-old white male in bed in no acute distress. Denies any chest pain, pressure or tightness. Anxious to go home. He does relate having pneumonia and Covid 2 to 3 months ago with subsequent increasing shortness of breath since then. Exam Vital signs and Labs for Last 24 Hours: Temp Pulse Resp BP Pulse Ox 98.1 F 91 H 16 108/59 L 94 L 05/23/21 04:00 05/23/21 06:03 05/23/21 04:00 05/23/21 04:00 05/23/21 06:03 Laboratory Results - last 24 hr 05/22/21 09:07: Troponin I 2.52 H 05/23/21 06:40: WBC 17.0 H D, RBC 3.97 L, Hgb 12.5 L, Hct 38.5 L, MCV 97.1 H, MCH 31.4 H, MCHC 32.4, RDW 14.4, Plt Count 247, MPV 9.0, Neut % (Auto) 93.1 H, Lymph % (Auto) 4.4 L, [place] % (Auto) 2.3, Eos % (Auto) 0.0 L, Baso % (Auto) 0.1, Neut # (Auto) 15.8 H, Lymph # (Auto) 0.8, [place] # (Auto) 0.4, Eos # (Auto) 0.0, Baso # (Auto) 0.0, Total Counted 100, Neutrophils % (Manual) 90 H, Band Neutrophils % 3.0, Lymphocytes % (Manual) 5 L, Monocytes % (Manual) 2, Platelet Estimate Normal, RBC Morphology Normal 05/23/21 06:40: Sodium 141, Potassium 3.6, Chloride 113 H, Carbon Dioxide 24, Anion Gap 7.6, BUN 13 D, Creatinine 0.70, Estimated Creat Clear 109, Estimated GFR 115, Est GFR ( Amer) 140, Glucose 145 H, Calcium 7.8 L 05/23/21 15:32: Activated Clotting Time 293 H* I & O for Last 24 hours: Intake & Output 05/20/21 05/21/21 05/22/21 05/23/21 11:59 11:59 11:59 11:59 Intake Total 2196 / 2196 Output Total 0 / 0 0 / 0 Balance 0 / 0 2195 Weight 149 lb 4.753 oz Microbiology Reports for the Last 24 Hours: Microbiology 05/22/21 13:00 Sputum - Expectorated Sputum Gram Stain - Final - Constitutional no acute distress - *Routine HEENT Exam Head: Present: normocephalic Eye: Present: EOMI, PERRL ENT: Present: mucous membranes moist - *Routine Neck Exam Present: supple. Absent: lymphadenopathy - *Routine Respiratory Exam Present: CTA bilaterally - *Routine Cardiovascular Exam Present: RRR - *Routine Abdominal Exam Present: soft, normoactive bowel sounds. Absent: tenderness - *Routine Extremities Exam Absent: cyanosis, clubbing, edema - *Routine Skin Exam Present: warm. Absent: rash - *Routine Neurological Exam Present: alert, oriented X3 Progress Note: A&P (1) Non-ST elevation HI (NSTEMI) Status: Acute (2) Acute exacerbation of chronic obstructive airways disease Status: Acute (3) Acute respiratory failure with hypercapnia Status: Acute (4) Septic shock Status: Acute (5) Severe sepsis with acute organ dysfunction Status: Acute (6) Tobacco use Status: Acute Assessment and Plan for All Diagnoses:: 1. Non-ST elevation HI, status post BENIGNO to RCA. Continue aspirin and Brilinta therapy 2. Cardiomyopathy with ejection fraction of 40%, patient will be started on Entresto 24/26 mg twice daily. We will hold off on beta-lizette therapy due to borderline low blood pressure. 3. Hyperlipidemia, statin therapy has been started 4. COPD/sepsis with shock/hypercapnia -Per PCP and pulmonary 5. Tobacco use, cessation recommended. Patient states he has patches at home. Stable from a cardiac standpoint for discharge when primary team is ready. Home medication recommendations Aspirin 81 mg daily Brilinta 90 mg twice daily Entresto 24/26 mg twice daily Atorvastatin 80 mg daily Follow-up in our office in 1 week. Will refer to cardiac rehab. Recommend patient be off work for 4 to 6 weeks until he can complete cardiac rehab.
--- NOTE | 2021-05-23 08:44 | HMH.PULMPN ---
Internal Medicine - PN: Subj *Date: 05/23/21 *Time: 09:59 Interval history: No acute respiratory vents overnight. Patient intermittently needing oxygen therapy at 1 to 2 L. Exam - Constitutional Constitutional:: Present: no acute distress, comfortable - HENMT Exam HENMT: Present: normocephalic, atraumatic - Eye Exam Eyes:: Present: normal appearance both eyes and related structures - Neck Exam Neck:: Present: normal visual inspection - Respiratory Exam Respiratory:: Present: able to speak in complete sentences, no respiratory distress. Absent: wheezing - Cardiovascular Exam Cardiac:: Present: paroxysmal nocturnal dyspnea - GI Exam GI:: Present: soft - Skin Exam Skin: Present: warm, no rash - Neurological Exam Neurological: Present: alert, awake, normal cognition - Extremities Exam Extremities: Present: no cyanosis, no clubbing, no edema Assessment and Plan (1) Non-ST elevation [place] (NSTEMI) Status: Acute Category: Medical Code(s): I21.4 - Non-ST elevation (NSTEMI) myocardial infarction (2) Acute exacerbation of chronic obstructive airways disease Status: Acute Category: Medical Code(s): J44.1 - Chronic obstructive pulmonary disease with (acute) exacerbation (3) Acute respiratory failure with hypercapnia Status: Acute Category: Medical Code(s): J96.02 - Acute respiratory failure with hypercapnia (4) Septic shock Status: Acute Category: Medical Code(s): A41.9 - Sepsis, unspecified organism; R65.21 - Severe sepsis with septic shock (5) Severe sepsis with acute organ dysfunction Status: Acute Category: Medical Code(s): A41.9 - Sepsis, unspecified organism; R65.20 - Severe sepsis without septic shock (6) Tobacco use Status: Acute Category: Social Hx Code(s): Z72.0 - Tobacco use - Assessment and plan all Dx Assessment and Plan for all problems:: #COPD exacerbation: #Acute hypoxic hypercarbic respiratory failure: Current smoker greater than [id number] smoking history. Using DuoNebs twice daily in a scheduled basis. Worsening symptoms for the last 3 weeks. Not using any oxygen at baseline. Afebrile. Mild leukocytosis on presentation. Significant respiratory acidosis on presentation with pH of 7.17 with PCO2 of 9.5, eventually improved to 7.31 and 49.6. X-ray from admission did not show any dense consolidation acute pulmonary process. Calcified right hilar lymphadenopathy. Initiated on ceftriaxone azithromycin long-term methylprednisolone 60 mg every 8. Patient on admission noted significant expiratory wheeze. Not appear to be in any respiratory distress. Interval update: Patient respiratory significantly improved, intermittently needing oxygen therapy 1 to 2 L to maintain saturations at 90% and above per auscultation significantly impaired with only minimal wheezing today. Plan: -Continue nasal cannula can supplementation to maintain O2 saturation goal of 90% and above. -Trelegy 100 inhaler along with DuoNebs/albuterol on as-needed basis -Wean antibiotics to oral Levoflaxacin to complete total of 5-day course. -Wean steroids to prednisone for 5 days #Thank for involving pulmonary in this patient care. Follow the patient in pulmonary clinic in 4 to 6 weeks with a full PFT and a 6-minute walk testing.
--- NOTE | 2021-05-23 09:48 | HMH.DCSUM ---
General - General Admission date:: 05/22/21 Discharge date: 05/23/21 HPI HPI: this patient with progressive sob sx over the last few days and presented to ed per ems in resp failure - pt was found to have acute copd and responded to treatment and had elevated card enz and was admitted for pul and card care Hospital Course Hospital Course: this patient with progressive sob sx over the last few days and presented to ed per ems in resp failure - pt was found to have acute copd and responded to treatment and had elevated card enz and was admitted for pul and card care 05/22/21 CXR: FINDINGS: Lungs: Unremarkable. No consolidation. There is no focal mass. Pleural spaces: Unremarkable. No pleural effusion. No pneumothorax. Heart/Mediastinum: Unremarkable. No cardiomegaly. Bones/joints: Unremarkable. There is no acute fracture present. IMPRESSION: No evidence for acute cardiac or pulmonary process. Electronically signed by Freddie Hunt MD 05/22/21 ECHO: Conclusion 1. Technically difficult study. Normal left ventricular size, estimated ejection fraction 40% with segmental wall motion abnormality described above. Diastolic parameters are within normal range. 2. Trace mitral and tricuspid regurgitation. 3. No significant pericardial effusion noted. 4. Inferior vena cava is poorly visualized. Electronically signed by : Rico Perez MD 05/22/21 Cardiac Catherization: ANGIOGRAPHIC RESULTS The left main artery Normal The left anterior descending artery Normal The circumflex artery Nondominant with mild mid vessel 20% stenosis The right coronary artery Large dominant vessel and has a proximal concentric 70% stenosis The FIELD ventriculogram reveals Slightly dilated globally hypokinetic ejection fraction 35 to 40% The left ventricular end-diastolic pressure 25 mmHg IMPRESSION Severe single-vessel coronary disease as described above Successful stenting of the proximal to mid dominant right coronary severe disease reduced to 0% with 1 drug-eluting stent Global hypokinesis with reduced ejection fraction Elevated LVEDP PLAN 1. Brilinta 90 twice daily plus aspirin 81 mg daily 2. Start Entresto and beta-blockers 3. LDL less than 55 to be achieved with high intensity statin 4. Avoidance of tobacco products 5. Risk factor modification 6. Cardiac rehabilitation 7. Obtain an official echocardiogram to specifically measure ejection fraction Electronically signed by : Ancelmo Galindo MD Cardiology is seen and recommends: 1. Non-ST elevation OR, status post BENIGNO to RCA. Continue aspirin and Brilinta therapy 2. Cardiomyopathy with ejection fraction of 40%, patient will be started on Entresto 24/26 mg twice daily. We will hold off on beta-lizette therapy due to borderline low blood pressure. 3. Hyperlipidemia, statin therapy has been started 4. COPD/sepsis with shock/hypercapnia -Per PCP and pulmonary 5. Tobacco use, cessation recommended. Patient states he has patches at home. Stable from a cardiac standpoint for discharge when primary team is ready. Home medication recommendations Aspirin 81 mg daily Brilinta 90 mg twice daily Entresto 24/26 mg twice daily Atorvastatin 80 mg daily Follow-up in our office in 1 week. Will refer to cardiac rehab. Recommend patient be off work for 4 to 6 weeks until he can complete cardiac rehab. Pulmonology has seen and recommends: Plan: -Continue nasal cannula can supplementation to maintain O2 saturation goal of 90% and above. -Trelegy 100 inhaler along with DuoNebs/albuterol on as-needed basis -Wean antibiotics to oral Levoflaxacin to complete total of 5-day course. -Wean steroids to prednisone for 5 days #Thank for involving pulmonary in this patient care. Follow the patient in pulmonary clinic in 4 to 6 weeks with a full PFT and a 6-minute walk testing. 61-year-old male patient sitting up in bed resting quietly with eyes open, he denies any chest
[2021-05-23 09:59] VITALS: PULSE 88; PULSE 93; O2SAT 90
--- NOTE | 2021-05-23 10:44 | HMH.PHAINT ---
I spoke with the patient today about his medication list. Patient had several new medications being sent in. Discussed the new medications with the patient and made sure the patient knew what they were being used for. Patient was being sent home on DAPT (ASA 81mg and Brilinta), so I discussed signs/symptoms of bleeding with the patient. Also reviewed the medications he was to continue on at home, and the medication he was to stop using. When we spoke, the patient did not have any questions or concerns. The patient was provided a copy of the medication list.
--- NOTE | 2021-05-23 10:50 | HMH.PHACLD ---
Frantz Magana SR has received discharge medication counseling on the following medications: 1. DAPT (Brilinta and ASA) 2. Entresto 3. Atorvastatin Patient did not receive beta-lizette therapy D/T HR concerns
--- NOTE | 2021-05-23 11:14 | PC.NURSE ---
Called clinic pharmacy we are waiting for them to bring up pts medication
--- NOTE | 2021-05-24 14:15 | CARE MANAGER ---
Spoke with patient regarding follow-up phone call and he states all things are well and he has no compliants.
== END 2021-05-23 11:55 | disposition home or self-care (01) | DRG 853 ==
LOC: ER 03:21 → 2ND 05:40
PROVIDERS: Internal Medicine; Admitting Provider Emergency Medicine; Emergency Provider Emergency Medicine; PCP Emergency Medicine; Visit Provider Emergency Medicine
PROC: 027034Z Dilation of Coronary Artery, One Artery with Drug-eluting Intraluminal Device, Percutaneous Approach (ICD-10-PCS; principal; 2021-05-22 13:00)
DX: A41.9 Sepsis, unspecified organism (principal); R65.21 Severe sepsis with septic shock; J96.01 Acute respiratory failure with hypoxia; I21.4 Non-ST elevation (NSTEMI) myocardial infarction; J44.1 Chronic obstructive pulmonary disease with (acute) exacerbation; I42.9 Cardiomyopathy, unspecified; F17.210 Nicotine dependence, cigarettes, uncomplicated; Z71.6 Tobacco abuse counseling; E78.5 Hyperlipidemia, unspecified
CPT/HCPCS: C9606; 36415; 71045; 80048; 80053; 82803; 83605; 83735; 83880; 84145; 84484; 85007; 85025; 85347; 85651; 87040; 87070; 87205; 92941; 93005; 93306; 93458; 94640; 94760; 96365; 96366; 96367; 99152; 99285; C1725; C1769; C1875; C9803; J0456; J0696; J1644; J2405; Q9967; U0003; U0005

== ENCOUNTER 2021-07-26 05:53 | Emergency (ER) | payer MEDICAID, SELFPAY ==
[2021-07-26] VITALS (16 sets, daily range): BP systolic 96–129; BP diastolic 57–77; PULSE 81–100; RESP 16–22; TEMP 36.6; O2SAT 90–98; BMI 24.6
--- NOTE | 2021-07-26 06:02 | ECG_ITS ---
APPROVED REPORT Exam: Resting ECG HR:100 bpm ECG Measurements Heart Rate 100 AXES KS 196 P 81 QRSd 86 QRS 83 QT 328 T 77 QTc 385 Conclusion SINUS TACHYCARDIA POSSIBLE RIGHT VENTRICULAR CONDUCTION DELAY [RSR (QR) IN V1/V2] ABNORMAL RHYTHM ECG UNCONFIRMED REPORT Electronically signed by : Carlos Manuel Pagan MD 07/26/2021 21:17:47
--- NOTE | 2021-07-26 06:20 | XR_ITS ---
PROCEDURE INFORMATION: Exam: XR Chest Exam date and time: 07/26/2021 6:20 AM Age: 61 years old Clinical indication: Shortness of breath; Additional info: SOA TECHNIQUE: Imaging protocol: XR of the chest. Views: 1 view. COMPARISON: CR XR CHEST PORTABLE 05/22/2021 3:22 AM FINDINGS: Lungs: Unremarkable. No consolidation. Pleural spaces: Unremarkable. No pleural effusion. No pneumothorax. Heart/Mediastinum: Unremarkable. No cardiomegaly. Bones/joints: Unremarkable. IMPRESSION: No acute findings.
[2021-07-26 06:31] LABS: Basophils # 0.2 K/mm3 (0-0.2); Eosinophils # 1.1 K/mm3 (0.0-0.4); Eosinophils % 13.3 % (0.1-12.0); Hematocrit 40.4 % (42.0-52.0); Hemoglobin 13.1 g/dL (14.1-18.0); Mean Corpuscular HGB Conc 32.5 g/dL (31.8-35.4); Mean Corpuscular Hemoglobin 31.5 pg (27.0-31.2); Mean Corpuscular Volume 96.9 fl (80-94); Mean Platelet Volume 7.9 fl (7.4-10.4); Monocytes # 0.5 K/mm3 (0.1-1.0); Monocytes % 6.1 % (1.7-9.3); Neutrophils # 4.3 K/mm3 (1.8-7.8); Neutrophils % 53.5 % (37.0-80.0); Platelet Count 306 K/mm3 (142-424); Red Blood Count 4.16 M/mm3 (4.60-6.20); Red Cell Distribution Width 13.3 % (11.5-17.5)
[2021-07-26 06:36] LABS: Chloride 104 mmol/L (98-107); Sodium 141 mmol/L (136-145)
[2021-07-26 06:39] LABS: Alanine Aminotransferase 29 U/L (12-78); Albumin Level 4.2 g/dl (3.5-5.0); Albumin/Globulin Ratio 1.4 (1.1-1.8); Alkaline Phosphatase 78 U/L (38-126); Aspartate Amino Transferase 33 U/L (17-59); Bilirubin,Total 0.2 mg/dl (0.2-1.3); Blood Urea Nitrogen 7 mg/dl (9-20); Carbon Dioxide 30 mmol/L (22.0-30.0); Creatinine Clearance Estimated 94 mL/min (50-200); Estimated Glomerular Filt Rate 99 ml/min (>60); GFR (African American) 120 ML/MIN (>60); Globulin 3.1 g/dL (1.3-3.2); Total Protein,Serum 7.3 g/dl (6.3-8.2)
[2021-07-26 06:40] LABS: Calcium 9.2 mg/dl (8.4-10.2); Glucose 137 mg/dl (74-100); Lactic Acid 1.4 mmol/L (0.7-2.1)
[2021-07-26 06:45] LABS: C-Reactive Protein 34.5 mg/L (0-4)
--- NOTE | 2021-07-26 06:50 | PC.NURSE ---
Pt medicated with lasik, provided him with urinal and educated pt that we needed to keep track of his output
--- NOTE | 2021-07-26 06:51 | HMH.EDSOB ---
ED Disposition Clinical Impression: Acute exacerbation of chronic obstructive airways disease, Tobacco use CAD (coronary artery disease) Qualifiers: Coronary Disease-Associated Artery/Lesion type: [place] artery [place] vs. transplanted heart: [place] heart Associated angina: with unspecified form of angina Qualified Code(s): I25.119 - Atherosclerotic heart disease of [place] coronary artery with unspecified angina pectoris Disposition: Home, Self-Care Condition on Discharge: Good Instructions: DI for Chronic Obstructive Pulmonary Disease Additional Instructions: use meds as directed Referrals: Jose Miguel Vieira MD [Primary Care Provider] - - Critical Care Critical Care Time: No Attestation: On 07/26/21, the high probability of a clinically significant, sudden or life threatening deterioration of the following system(s) required my full and direct attention, intervention and personal management. The time I documented below is in addition to time spent performing reported procedures but includes the following listed in this critical care notation. Medical Decision Making - Medical Records Medical records reviewed: Yes: I reviewed the patient's medical records. - Luis Inquiry Pt receiving controlled substance: No Vital Signs: 07/26/21 05:53 07/26/21 06:43 07/26/21 06:44 Temperature 97.8 F Temperature Source Oral Pulse Rate 92 H 92 H Pulse Rate [Right] 100 H Respiratory Rate 22 16 18 Blood Pressure 114/71 129/73 Blood Pressure [Right Arm] 127/68 Blood Pressure Mean 81 Blood Pressure Mean [Right Arm] 87 Blood Pressure Source Automatic Cuff Blood Pressure Source [Right Arm] Automatic Cuff Blood Pressure Position Sitting Blood Pressure Position [Right Arm] Sitting 02 Sat by Pulse Oximetry 93 L 97 97 Oxygen Delivery Method Room Air Room Air Oxygen Flow Rate (LPM) 07/26/21 07:05 07/26/21 07:34 07/26/21 08:05 Temperature Temperature Source Pulse Rate 89 81 90 Pulse Rate [Right] Respiratory Rate 18 18 18 Blood Pressure 125/75 112/77 112/71 Blood Pressure [Right Arm] Blood Pressure Mean 83 84 79 Blood Pressure Mean [Right Arm] Blood Pressure Source Blood Pressure Source [Right Arm] Blood Pressure Position Blood Pressure Position [Right Arm] 02 Sat by Pulse Oximetry 95 96 95 Oxygen Delivery Method Nasal Cannula Nasal Cannula Oxygen Flow Rate (LPM) 3 3 - Lab Data Lab results reviewed: Yes: I reviewed the patient's lab results. Lab Results 07/26/21 06:15: WBC 8.0, RBC 4.16 L, Hgb 13.1 L, Hct 40.4 L, MCV 96.9 H, MCH 31.5 H, MCHC 32.5, RDW 13.3, Plt Count 306, MPV 7.9, Neut % (Auto) 53.5, Lymph % (Auto) 25.0, [place] % (Auto) 6.1, Eos % (Auto) 13.3 H, Baso % (Auto) 2.0, Neut # (Auto) 4.3, Lymph # (Auto) 2.0, [place] # (Auto) 0.5, Eos # (Auto) 1.1 H, Baso # (Auto) 0.2, ESR 88 H 07/26/21 06:15: Sodium 141, Potassium 4.0, Chloride 104, Carbon Dioxide 30, Anion Gap 11.0, BUN 7 L, Creatinine 0.80, Estimated Creat Clear 94, Estimated GFR 99, Est GFR ( Amer) 120, Glucose 137 H, Calcium 9.2, Total Bilirubin 0.2, AST 33, ALT 29, Alkaline Phosphatase 78, Troponin I < 0.01, C-Reactive Protein 34.5 H, Total Protein 7.3, Albumin 4.2, Globulin 3.1, Albumin/Globulin Ratio 1.4 07/26/21 06:15: Lactate 1.4 07/26/21 06:15: NT-Pro-B Natriuret Pep 117 07/26/21 06:49: SARS-CoV-2 (PCR) Not detected, Influenza A Untype (PCR) Not detected, Influenza Type B (PCR) Not detected Result diagrams: 07/26/21 06:15 07/26/21 06:15 Orders (Tests/Meds): ED MEDICATIONS Generic Name Dose Route Start Last Admin Trade Name Freq PRN Reason Stop Dose Admin Sodium Chloride 10 ml 07/26/21 06:20 Sodium Chloride 0.9% 10ml Flush Syringe IV 08/25/21 06:19 NEEDED PRN Maintain IV Site Discontinued Medications Generic Name Dose Route Start Last Admin Trade Name Freq PRN Reason Stop Dose Admin Albuterol/Ipratropium 3 ml 07/26/21 08:02 Ipratropium/Albuterol 3
[2021-07-26 06:53] LABS: Coronavirus 19, PCR Not Detected (NotDetected); Influenza A, PCR Not Detected (NotDetected); Influenza B, PCR Not Detected (NotDetected)
[2021-07-26 06:59] LABS: Troponin I < 0.01 ng/ml (0.00-0.034)
--- NOTE | 2021-07-26 07:04 | PC.NURSE ---
Notified lab of BNP add on
[2021-07-26 07:05] LABS: Erythrocyte Sedimentation Rate 88 mm/hr (0-20)
--- NOTE | 2021-07-26 07:09 | PC.NURSE ---
325 ML of urine output at this time; urinal emptied. UA sent to lab
[2021-07-26 07:23] LABS: NT Pro Brain Natriuretic Pep. 117 pg/mL (0-125)
--- NOTE | 2021-07-26 07:39 | PC.NURSE ---
pt had 425 ml output of urine at this time
--- NOTE | 2021-07-26 08:03 | PC.NURSE ---
notified RT of neb treatment, spoke with kari
--- NOTE | 2021-07-26 08:07 | PC.NURSE ---
DAVID NICHOLS at
--- NOTE | 2021-07-26 08:08 | PC.NURSE ---
Dr. Vieira at BS speaking with patient and family to give an update; RT at BS for MENA
--- NOTE | 2021-07-26 08:10 | PC.NURSE ---
RT at BS
--- NOTE | 2021-07-26 08:21 | PC.NURSE ---
Dr. Vieira at speaking with patient
--- NOTE | 2021-07-26 08:29 | PC.NURSE ---
pt on room air at this time, will continue to monitor
--- NOTE | 2021-07-26 09:01 | PC.NURSE ---
repeat troponin drawn and sent to the lab
[2021-07-26 09:29] LABS: Troponin I < 0.01 ng/ml (0.00-0.034)
--- NOTE | 2021-07-26 09:47 | PC.NURSE ---
425ml emptied via urinal
== END 2021-07-26 09:50 | disposition home or self-care (01) ==
PROVIDERS: Emergency Provider Emergency Medicine; PCP Emergency Medicine
DX: J44.1 Chronic obstructive pulmonary disease with (acute) exacerbation (principal); M54.9 Dorsalgia, unspecified; R00.0 Tachycardia, unspecified; Z20.822 Contact with and (suspected) exposure to COVID-19; I50.9 Heart failure, unspecified; I25.119 Atherosclerotic heart disease of native coronary artery with unspecified angina pectoris; R01.1 Cardiac murmur, unspecified; G40.909 Epilepsy, unspecified, not intractable, without status epilepticus; F32.A Depression, unspecified; F41.9 Anxiety disorder, unspecified; F17.210 Nicotine dependence, cigarettes, uncomplicated; Z79.51 Long term (current) use of inhaled steroids; Z79.52 Long term (current) use of systemic steroids; Z79.82 Long term (current) use of aspirin; Z79.899 Other long term (current) drug therapy; Z95.5 Presence of coronary angioplasty implant and graft; Z82.49 Family history of ischemic heart disease and other diseases of the circulatory system; Z80.9 Family history of malignant neoplasm, unspecified
CPT/HCPCS: 71045; 80053; 83605; 83880; 84484; 85025; 85651; 86140; 87040; 93005; 96374; 96375; 99285; C9803; U0003; U0005

== ENCOUNTER → 2021-10-11 13:15 | Outpatient (CLI) | payer MEDICAID, SELFPAY ==
[2021-10-11 14:00] VITALS: PULSE 64; PULSE 65
[2021-10-11 14:20] VITALS: BP 103/61; BP 108/57; PULSE 68; PULSE 78; RESP 18; RESP 22; O2SAT 92; O2SAT 93
--- NOTE | 2021-10-11 14:33 | CT_ITS ---
FINAL REPORT CLINICAL HISTORY: lung cancer screening, smoker for 40 years, copd and emphysema COMPARISON: 11/25/2019 FINDINGS: CTDI vol (mGy): 2.[address] images of the chest were obtained using the low-dose protocol for screening. On the lung window images, no change is seen in the 4 mm left upper lobe pulmonary nodule on image 41. There is granulomatous disease. Reticular nodular opacities are seen in the anterior right lower lobe, new from prior exam, favor infectious or inflammatory. There is a right upper lobe nodule on image number 36 measuring 4 mm which is unchanged. Lungs are otherwise clear. A mildly enlarged, subcarinal lymph node measuring 2.5 cm is stable. No other lymphadenopathy is present. IMPRESSION: Stable pulmonary nodules measuring 4 mm. Lung RADS category 2. Recommend 12 month followup low-dose CT for further evaluation. Modifier S: Reticular nodular opacities in the right lower lobe, favor infectious or inflammatory etiology. Reviewed, Interpreted and Dictated by Estephanie Alexander MD Transcribed by Marley Lazo Authenticated and [facility]
== END ==
PROVIDERS: PCP Emergency Medicine; Visit Provider Internal Medicine Pulmonary Disease
DX: Z87.891 Personal history of nicotine dependence (principal); Z12.2 Encounter for screening for malignant neoplasm of respiratory organs; R06.02 Shortness of breath
CPT/HCPCS: 71271; 94060; 94618; 94640; 94727; 94729

== ENCOUNTER → 2022-07-16 14:30 | Outpatient (CLI) | payer MEDICAID, SELFPAY ==
[2022-07-16 18:49] LABS: Alanine Aminotransferase 23 U/L (12-78); Albumin Level 4.5 g/dl (3.5-5.0); Albumin/Globulin Ratio 1.7 (1.1-1.8); Alkaline Phosphatase 74 U/L (38-126); Anion Gap 16.2 mEq/L (5-15); Aspartate Amino Transferase 40 U/L (17-59); Basophils % 0.5 % (0.1-2.0); Bilirubin,Total 0.6 mg/dl (0.2-1.3); Blood Urea Nitrogen 9 mg/dl (9-20); Calcium 9.1 mg/dl (8.4-10.2); Carbon Dioxide 27 mmol/L (22.0-30.0); Chloride 101 mmol/L (98-107); Cholesterol 130 mg/dl (140-200); Eosinophils # 0.2 K/mm3 (0.0-0.4); Eosinophils % 2.2 % (0.1-12.0); Estimated Glomerular Filt Rate 99 ml/min (>60); GFR (African American) 119 ML/MIN (>60); Globulin 2.6 g/dL (1.3-3.2); Glucose 92 mg/dl (74-100); HDL Cholesterol 44 mg/dl (40-60); Hematocrit 40.8 % (42.0-52.0); Hemoglobin 13.2 g/dL (14.1-18.0); Lymphocytes # 2.1 K/mm3 (0.7-4.5); Mean Corpuscular HGB Conc 32.4 g/dL (31.8-35.4); Mean Corpuscular Hemoglobin 30.7 pg (27.0-31.2); Mean Corpuscular Volume 94.7 fl (80-94); Mean Platelet Volume 9.5 fl (7.4-10.4); Monocytes # 0.5 K/mm3 (0.1-1.0); Monocytes % 5.6 % (1.7-9.3); Neutrophils # 5.6 K/mm3 (1.8-7.8); Neutrophils % 66.8 % (37.0-80.0); Platelet Count 241 K/mm3 (142-424); Potassium 4.2 mmoL/L (3.5-5.1); Red Blood Count 4.31 M/mm3 (4.60-6.20); Red Cell Distribution Width 13.7 % (11.5-17.5); Sodium 140 mmol/L (136-145); Total Protein,Serum 7.1 g/dl (6.3-8.2); Triglycerides 63 mg/dl (30-150); VLDL Cholesterol 13 mg/dL (0-40); White Blood Count 8.4 K/mm3 (4.8-10.8)
[2022-07-16 19:01] LABS: Direct LDL Cholesterol 67.35 mg/dL (100-129)
[2022-07-16 19:05] LABS: Triiodothryronine (T3) Uptake 32 % (23.5-40.5)
[2022-07-16 19:06] LABS: 25-OH Vitamin D, Total 37.3 ng/mL (30-100)
[2022-07-16 19:13] LABS: Free Thyroxine Index 2.6 ug/dL (5.93-13.13); T4 (Thyroxine) 8.2 ug/dl (5.53-11.0)
[2022-07-16 19:19] LABS: Thyroid Stimulating Hormone 0.85 uIU/mL (0.465-4.68)
== END ==
PROVIDERS: PCP Nurse Practitioner Family; Visit Provider Nurse Practitioner Family
DX: J43.9 Emphysema, unspecified (principal); R05.9 Cough, unspecified; R53.83 Other fatigue; Z79.899 Other long term (current) drug therapy
CPT/HCPCS: 80053; 80061; 82306; 84436; 84443; 84479; 85025

== ENCOUNTER → 2022-08-14 14:00 | Outpatient (CLI) | payer MEDICAID, SELFPAY ==
[2022-08-14 19:35] LABS: Prostate Specific Ag Screen 1.3 ng/ml (0.0-4.0)
== END ==
PROVIDERS: PCP Emergency Medicine; Visit Provider Emergency Medicine
DX: Z72.0 Tobacco use (principal); Z12.5 Encounter for screening for malignant neoplasm of prostate
CPT/HCPCS: G0103

== ENCOUNTER 2022-09-08 12:56 | Emergency (ER) | payer MEDICAID, SELFPAY ==
[2022-09-08] VITALS (11 sets, daily range): BP systolic 104–152; BP diastolic 54–72; PULSE 50–60; RESP 16–18; TEMP 36.8; O2SAT 95–98
--- NOTE | 2022-09-08 12:53 | ECG_ITS ---
APPROVED REPORT Exam: Resting ECG HR:55 bpm ECG Measurements Heart Rate 55 AXES CO 216 P 83 QRSd 84 QRS 81 QT 394 T 81 QTc 384 Conclusion SINUS BRADYCARDIA WITH FIRST DEGREE AV BLOCK POSSIBLE RIGHT VENTRICULAR CONDUCTION DELAY [RSR (QR) IN V1/V2] ABNORMAL ECG UNCONFIRMED REPORT Electronically signed by : Carlos Manuel Pagan MD 09/09/2022 18:00:59
--- NOTE | 2022-09-08 13:20 | XR_ITS ---
PROCEDURE INFORMATION: Exam: XR Chest Exam date and time: 09/08/2022 1:31 PM Age: 62 years old Clinical indication: Pain; Chest pressure; Additional info: Chest pain TECHNIQUE: Imaging protocol: Radiologic exam of the chest. Views: 1 view. COMPARISON: 1. CT LUNG SCREENING 10/11/2021 2:49 PM 2. CR XR CHEST 2V 03/24/2021 4:56 PM FINDINGS: Lungs: No consolidation or lung nodules. Lungs are hyperinflated. Pleural spaces: No pleural effusion. No pneumothorax. Heart/Mediastinum: No abnormalities. No cardiomegaly. No pulmonary vascular congestion. Bones/joints: No fractures or bone lesions. IMPRESSION: No acute findings in the chest. No change since 03/24/2021.
[2022-09-08 13:25] LABS: Basophils # 0.1 K/mm3 (0-0.2); Basophils % 0.8 % (0.1-2.0); Eosinophils # 0.5 K/mm3 (0.0-0.4); Eosinophils % 7.5 % (0.1-12.0); Hematocrit 40.9 % (42.0-52.0); Hemoglobin 13.4 g/dL (14.1-18.0); Lymphocytes # 2.3 K/mm3 (0.7-4.5); Lymphocytes % 32.7 % (10-50); Mean Corpuscular HGB Conc 32.7 g/dL (31.8-35.4); Mean Corpuscular Hemoglobin 31.1 pg (27.0-31.2); Mean Corpuscular Volume 95.4 fl (80-94); Mean Platelet Volume 8.4 fl (7.4-10.4); Monocytes # 0.4 K/mm3 (0.1-1.0); Monocytes % 5.8 % (1.7-9.3); Neutrophils # 3.7 K/mm3 (1.8-7.8); Neutrophils % 53.2 % (37.0-80.0); Platelet Count 197 K/mm3 (142-424); Red Blood Count 4.29 M/mm3 (4.60-6.20); Red Cell Distribution Width 13.7 % (11.5-17.5); White Blood Count 6.9 K/mm3 (4.8-10.8)
[2022-09-08 13:38] LABS: Alanine Aminotransferase 28 U/L (12-78); Albumin Level 4.2 g/dl (3.5-5.0); Albumin/Globulin Ratio 1.5 (1.1-1.8); Alkaline Phosphatase 61 U/L (38-126); Anion Gap 9.1 mEq/L (5-15); Aspartate Amino Transferase 37 U/L (17-59); Bilirubin,Total 0.3 mg/dl (0.2-1.3); Blood Urea Nitrogen 11 mg/dl (9-20); Calcium 8.9 mg/dl (8.4-10.2); Carbon Dioxide 28 mmol/L (22.0-30.0); Chloride 107 mmol/L (98-107); Creatinine Clearance Estimated 76 mL/min (50-200); Estimated Glomerular Filt Rate 99 ml/min (>60); GFR (African American) 119 ML/MIN (>60); Globulin 2.8 g/dL (1.3-3.2); Glucose 109 mg/dl (74-100); Potassium 4.1 mmoL/L (3.5-5.1); Sodium 140 mmol/L (136-145)
--- NOTE | 2022-09-08 13:39 | HMH.EDGENADL ---
Discharge Plan Disposition Patient Disposition: Left Against Medical Advice Condition: Fair Prescriptions Prescriptions: No Action albuterol sulfate 90 mcg/actuation HFA aerosol inhaler 2 puff IH Q4-6H PRN (Reason: breathing) Qty: 8.5 10RF ipratropium-albuterol 0.5 mg-3 mg(2.5 mg base)/3 mL solution for nebulization 3 ml IH Q4-6H PRN (Reason: shortness of breath or wheezing) Qty: 180 1RF buprenorphine-naloxone 8-2 mg tablet, sublingual 2 tab SL DAILY Patient Comments: DISSOLVE 2 TABLETS UNDER THE TONGUE EVERY DAY prednisone 20 mg tablet See Rx Instructions .Route .COMPLEX Qty: 9 0RF Rx Instructions: Take 1 tablet twice daily for 3 days, then Take 1 tablet daily for 3 days; tamsulosin [Flomax] 0.4 mg capsule 0.4 mg PO DAILY Qty: 30 2RF finasteride [Proscar] 5 mg tablet 5 mg PO DAILY Qty: 30 2RF sildenafil (pulm.hypertension) 20 mg tablet See Rx Instructions .ROUTE .COMPLEX Qty: 30 0RF Rx Instructions: take 1 to 2 tablets qhs prn; gabapentin 800 mg tablet 800 mg PO TID Qty: 90 2RF Brilinta 90 mg tablet 90 mg PO BID atorvastatin 80 mg tablet See Rx Instructions .ROUTE .COMPLEX Qty: 90 3RF Dose Instruction: TAKE ONE TABLET BY MOUTH AT BEDTIME Rx Instructions: TAKE ONE TABLET BY MOUTH AT BEDTIME Entresto 24-26 mg tablet See Rx Instructions .ROUTE .COMPLEX Qty: 60 1RF Dose Instruction: TAKE ONE TABLET BY MOUTH 2 TIMES A DAY Rx Instructions: TAKE ONE TABLET BY MOUTH 2 TIMES A DAY Breztri Aerosphere 160-9-4.8 mcg/actuation HFA aerosol inhaler See Rx Instructions .ROUTE .COMPLEX Qty: 10.7 0RF Dose Instruction: INHALE 2 PUFFS BY MOUTH 2 TIMES A DAY Rx Instructions: INHALE 2 PUFFS BY MOUTH 2 TIMES A DAY aspirin 81 MG tablet,chewable 81 mg PO DAILY Referrals Follow up/Referrals: Jose Miguel Vieira MD [Primary Care Provider] - See instructions Activity Restrictions/Add. Instructions Additional Instructions/Restrictions: Please return to the emergency department immediately if you change your mind about wanting to be admitted.Please follow-up with Dr. Galindo in clinic in the morning at 830.Please return emergency department if you develop any new or worsening problems. Clinical Impressions Clinical Impression: Chest pain, Acute non-ST elevation myocardial infarction (NSTEMI) Discharge ED Provider: Wilber Davila General Adult HPI <Wilber Davila MD - Last Filed: 09/08/22 16:16> General Chief complaint: Chest Pain Stated complaint: chest pain Time Seen by Provider: 09/08/22 13:00 Mode of Arrival: Ambulatory Source of Information: Patient Limitations: No Limitations Description of Symptoms (Recalled from ER Triage Doc. by RN): 62 yo M presents to ED with c/o chest pain that is intermittent. pt reports that pain comes and goes. pt reports that pain is located in his middle chest. pt reports weakness ongoing for the past 1 month. History of Present Illness HPI narrative: This is a 62-year-old male with history of COPD still smoking, CAD status post [place] and stenting currently on Brilinta, presenting with chest pain. Patient states that about an hour prior to arrival, he was sitting on the couch when he started having chest pain in his left chest. It was sharp, intermittent, radiated to his left shoulder. Did not feel like his previous heart attacks. Not associated with shortness of breath, nausea or vomiting, diaphoresis, weakness, or any other concerns. It self abated, then came back, so he came to the ER for further evaluation. Not currently present on evaluation Related Data Home Medications Medication Instructions Recorded Confirmed buprenorphine 8 mg-naloxone 2 mg 2 tab sublingual DAILY Opioid Use 01/02/21 09/09/22 sublingual tablet Disorder aspirin 81 mg chewable tablet 81 mg PO DAILY Blood thinner 07/26/21 09/09/22 ticagrelor 90 mg tablet (Brilinta) 90 mg PO BID 09/09/22
[2022-09-08 13:49] LABS: Troponin I < 0.01 ng/ml (0.00-0.034)
--- NOTE | 2022-09-08 16:33 | PC.NURSE ---
rounded on pt, no needs at this time, family at bs, waiting on second trop to come back. PT states they just took his blood again
[2022-09-08 17:00] LABS: Troponin I 0.04 ng/ml (0.00-0.034)
--- NOTE | 2022-09-08 17:37 | PC.NURSE ---
rounded on pt nothing needed at this time,call light at bs
--- NOTE | 2022-09-08 18:07 | PC.NURSE ---
paging dr muir for er md
--- NOTE | 2022-09-08 18:08 | PC.NURSE ---
Dr Jacobs speaking with Dr Galindo
--- NOTE | 2022-09-08 18:13 | PC.NURSE ---
er speaking with pt about being admitted
--- NOTE | 2022-09-08 18:39 | PC.NURSE ---
pt states that he wants to go home, he does not like hospitals and feels that he would be better at home and he only lives a few minutes away if he needed to come back. PT understand the labs and other test that was completed here and understands the meaning of those. FAmily with pt
== END 2022-09-08 18:40 | disposition left against medical advice (07) ==
PROVIDERS: Emergency Provider Emergency Medicine; PCP Emergency Medicine
DX: I21.4 Non-ST elevation (NSTEMI) myocardial infarction (principal); I44.0 Atrioventricular block, first degree; R00.1 Bradycardia, unspecified; J44.9 Chronic obstructive pulmonary disease, unspecified; I25.10 Atherosclerotic heart disease of native coronary artery without angina pectoris; F17.210 Nicotine dependence, cigarettes, uncomplicated
CPT/HCPCS: 36415; 71045; 80053; 84484; 85025; 93005; 99285

== ENCOUNTER → 2022-11-05 11:00 | Outpatient (CLI) | payer MEDICAID, SELFPAY ==
[2022-11-05 20:38] LABS: Iron 81 ug/dL (49-181)
[2022-11-05 20:48] LABS: Total Iron Binding Capacity 296 ug/dL (261-462)
== END ==
PROVIDERS: PCP Emergency Medicine; Visit Provider Emergency Medicine
DX: R53.83 Other fatigue (principal)
CPT/HCPCS: 83540; 83550

== ENCOUNTER → 2022-11-22 10:45 | Outpatient (CLI) | payer MEDICAID, SELFPAY ==
--- NOTE | 2022-11-22 10:54 | CT_ITS ---
FINAL REPORT TECHNIQUE: Axial CT images were performed from the lung apices through the upper abdomen. Coronal reformats were submitted. This study was performed with techniques to keep radiation doses as low as reasonably achievable (ALARA). Individualized dose reduction techniques using automated exposure control or adjustment of mA and/or kV according to the patient's size were employed. CLINICAL HISTORY: Lung nodules, follow-up COMPARISON: 10/11/2021 FINDINGS: There are multiple borderline sized mediastinal nodes which are stable. There is no axillary mass. Heart size is normal. There is no pericardial or pleural effusion. There is a stable, right upper lobe nodule measuring 4 mm on image 32. A 3 mm anterior right upper lobe nodule on image 38 is also stable. Several other less than 5 mm nodules are stable. There is a calcified granuloma in the left lower lobe. There are several new groundglass opacities in the medial left upper lobe measuring up to 10 mm. These are new compared to the prior exam. Limited images of the upper abdomen are unremarkable. IMPRESSION: Stable, small pulmonary nodules. New, groundglass left upper lobe opacities are nonspecific and favored to be inflammatory. 6-month follow-up chest CT is recommended. Reviewed, Interpreted and Dictated by Rishi Craig III, MD Transcribed by Meredith Craig Authenticated and [facility]
== END ==
PROVIDERS: PCP Emergency Medicine; Visit Provider Emergency Medicine
DX: R91.1 Solitary pulmonary nodule (principal); Z72.0 Tobacco use
CPT/HCPCS: 71250

== ENCOUNTER 2022-12-20 20:20 | Emergency (ER) | payer MEDICAID, SELFPAY ==
--- NOTE | 2022-12-20 20:28 | ECG_ITS ---
APPROVED REPORT Exam: Resting ECG HR:97 bpm ECG Measurements Heart Rate 97 AXES LA 160 P 84 QRSd 78 QRS 81 QT 329 T 79 QTc 383 Conclusion SINUS RHYTHM NORMAL ECG UNCONFIRMED REPORT Electronically signed by : Carlos Mnauel Pagan MD 12/21/2022 16:53:04
[2022-12-20 20:36] VITALS: BP 132/70; PULSE 92; RESP 26; TEMP 37; O2SAT 94; BMI 22.4
[2022-12-20 20:40] VITALS: BMI 22.4
--- NOTE | 2022-12-20 20:44 | XR_ITS ---
PROCEDURE INFORMATION: Exam: XR Chest Exam date and time: 12/20/2022 9:09 PM Age: 62 years old Clinical indication: Shortness of breath; Additional info: SOA TECHNIQUE: Imaging protocol: Radiologic exam of the chest. Views: 2 views. COMPARISON: CT CHEST WO CON 11/22/2022 10:55 AM FINDINGS: Lungs: Subtle perihilar hazy opacities with bronchial wall thickening Pleural spaces: No pleural effusion. No pneumothorax. Heart/Mediastinum: Normal cardiomediastinal silhouette. Bones/joints: No acute osseous abnormality. IMPRESSION: Subtle perihilar hazy opacities with bronchial wall thickening suggesting an infectious or inflammatory bronchitis/bronchiolitis.
[2022-12-20 20:54] LABS: Basophils % 0.4 % (0.1-2.0); Eosinophils % 9.8 % (0.1-12.0); Hematocrit 40.5 % (42.0-52.0); Hemoglobin 13.6 g/dL (14.1-18.0); Lymphocytes # 1.8 K/mm3 (0.7-4.5); Lymphocytes % 17.4 % (10-50); Mean Corpuscular HGB Conc 33.7 g/dL (31.8-35.4); Mean Corpuscular Hemoglobin 32.4 pg (27.0-31.2); Mean Corpuscular Volume 96.2 fl (80-94); Mean Platelet Volume 8.1 fl (7.4-10.4); Monocytes # 0.5 K/mm3 (0.1-1.0); Monocytes % 4.4 % (1.7-9.3); Neutrophils # 7.1 K/mm3 (1.8-7.8); Platelet Count 230 K/mm3 (142-424); Red Blood Count 4.21 M/mm3 (4.60-6.20); Red Cell Distribution Width 13.5 % (11.5-17.5); White Blood Count 10.5 K/mm3 (4.8-10.8)
--- NOTE | 2022-12-20 20:57 | HMH.EDGENADL ---
Discharge Plan Disposition Patient Disposition: Home, Self-Care Prescriptions Prescriptions: New azithromycin 250 mg tablet 250 mg PO DAILY 4 Days Qty: 4 0RF Rx Instructions: start on day 2 of therapy prednisone 50 mg tablet 50 mg PO DAILY 5 Days Qty: 5 0RF No Action albuterol sulfate 90 mcg/actuation HFA aerosol inhaler 2 puff IH Q4-6H PRN (Reason: breathing) Qty: 8.5 10RF ipratropium-albuterol 0.5 mg-3 mg(2.5 mg base)/3 mL solution for nebulization 3 ml IH Q4-6H PRN (Reason: shortness of breath or wheezing) Qty: 180 1RF buprenorphine-naloxone 8-2 mg tablet, sublingual 2 tab SL DAILY Patient Comments: DISSOLVE 2 TABLETS UNDER THE TONGUE EVERY DAY finasteride [Proscar] 5 mg tablet 5 mg PO DAILY Qty: 30 2RF sildenafil (pulm.hypertension) 20 mg tablet See Rx Instructions .ROUTE .COMPLEX Qty: 30 0RF Rx Instructions: take 1 to 2 tablets qhs prn; Brilinta 90 mg tablet 90 mg PO BID Qty: 60 2RF azithromycin [Zithromax Z-Darek] 250 mg tablet See Rx Instructions PO .COMPLEX Qty: 6 0RF Rx Instructions: For 250 mg dose pack: take 500 mg today (day 1), then 250 mg for 4 days (days 2-5) PO gabapentin 800 mg tablet 800 mg PO TID Qty: 90 2RF atorvastatin 80 mg tablet See Rx Instructions .ROUTE .COMPLEX Qty: 90 3RF Dose Instruction: TAKE ONE TABLET BY MOUTH AT BEDTIME Rx Instructions: TAKE ONE TABLET BY MOUTH AT BEDTIME Entresto 24-26 mg tablet See Rx Instructions .ROUTE .COMPLEX Qty: 60 1RF Dose Instruction: TAKE ONE TABLET BY MOUTH 2 TIMES A DAY Rx Instructions: TAKE ONE TABLET BY MOUTH 2 TIMES A DAY Breztri Aerosphere 160-9-4.8 mcg/actuation HFA aerosol inhaler See Rx Instructions .ROUTE .COMPLEX Qty: 10.7 0RF Dose Instruction: INHALE 2 PUFFS BY MOUTH 2 TIMES A DAY Rx Instructions: INHALE 2 PUFFS BY MOUTH 2 TIMES A DAY tamsulosin 0.4 mg capsule See Rx Instructions .ROUTE .COMPLEX Qty: 30 0RF Dose Instruction: TAKE ONE CAPSULE BY MOUTH ONCE A DAY Rx Instructions: TAKE ONE CAPSULE BY MOUTH ONCE A DAY aspirin 81 MG tablet,chewable 81 mg PO DAILY Referrals Follow up/Referrals: Jose Miguel Vieira MD [Primary Care Provider] - See instructions Activity Restrictions/Add. Instructions Additional Instructions/Restrictions: At this time it was felt you are safe to be discharged home. If new or worsening symptoms please do not hesitate to return the emergency department. If symptoms persist please follow-up with your family doctor as you are able. Please take your medication as prescribed. Clinical Impressions Clinical Impression: COPD exacerbation Discharge ED Provider: Messi Hook General Adult HPI General Chief complaint: Shortness of Breath/Dyspnea Stated complaint: SOA Time Seen by Provider: 12/20/22 20:40 Mode of Arrival: Ambulatory Source of Information: Patient Limitations: No Limitations Description of Symptoms (Recalled from ER Triage Doc. by RN): Patient to ED for SOA x3 days. Increased SOA past 12 hours. Patient states that he was walking to bathroom this AM and could not catch breath, broke out in a cold sweat, and had to sit down to recover. Patient is not on home oxygen, but meds SOMMELIER are 5 breathing tx, and multiple puffs from rescue albuterol inhaler. History of Present Illness HPI narrative: Patient is a 8-year-old male past medical history of COPD not on home oxygen presents emergency department for evaluation of shortness of breath. Onset was acute, occurring over the last 48 to 72 hours. Symptoms have been refractory to his breathing treatments at home. Due to persistent worsening symptoms he presents here for continued evaluation. There is an associated cough. Patient denies chest pain. Related Data Home Medications Medication Instructions Recorded Confirmed buprenorphine 8 mg-naloxone 2 mg 2 tab sublingual DAILY Opioid Use 01/02/21 09
[2022-12-20 20:58] LABS: Alanine Aminotransferase 28 U/L (12-78); Albumin Level 4.5 g/dl (3.5-5.0); Albumin/Globulin Ratio 1.4 (1.1-1.8); Alkaline Phosphatase 63 U/L (38-126); Anion Gap 14.9 mEq/L (5-15); Aspartate Amino Transferase 40 U/L (17-59); Bilirubin,Total 0.4 mg/dl (0.2-1.3); Blood Urea Nitrogen 12 mg/dl (9-20); Calcium 9.1 mg/dl (8.4-10.2); Carbon Dioxide 28 mmol/L (22.0-30.0); Chloride 101 mmol/L (98-107); Creatinine Clearance Estimated 85 mL/min (50-200); Estimated Glomerular Filt Rate 99 ml/min (>60); GFR (African American) 119 ML/MIN (>60); Globulin 3.2 g/dL (1.3-3.2); Glucose 173 mg/dl (74-100); Potassium 3.9 mmoL/L (3.5-5.1); Sodium 140 mmol/L (136-145); Total Protein,Serum 7.7 g/dl (6.3-8.2)
[2022-12-20 21:00] VITALS: BP 113/63; PULSE 82; RESP 24; O2SAT 97
[2022-12-20 21:03] LABS: C-Reactive Protein 5.7 mg/L (0-4)
[2022-12-20 21:08] LABS: Coronavirus 19, PCR Not Detected (NotDetected); Influenza A, PCR Not Detected (NotDetected); Influenza B, PCR Not Detected (NotDetected)
[2022-12-20 21:09] LABS: Lactic Acid 1.2 mmol/L (0.7-2.1)
[2022-12-20 21:13] LABS: Troponin I < 0.01 ng/ml (0.00-0.034)
[2022-12-20 21:30] VITALS: BP 121/63; PULSE 81; RESP 17; O2SAT 99
[2022-12-20 21:44] LABS: VBG Base Excess -1.7 mmol/L (-2.4-2.3); VBG Oxygen Saturation 99.1 % (50-70); VBG PCO2 37.5 mmol/L (35-51); VBG PH 7.41 mmol/L (7.31-7.41); VBG PO2 165.8 mmol/L (28-40); VBG Total CO2 24.1 mmol/L (23-27)
--- NOTE | 2022-12-20 21:44 | PC.NURSE ---
Rounded on patient call light within reach of patient
[2022-12-20 21:51] VITALS: PULSE 81; PULSE 89
[2022-12-20 22:19] VITALS: BP 131/72; PULSE 78; RESP 18; TEMP 36.8
== END 2022-12-20 22:29 | disposition home or self-care (01) ==
PROVIDERS: Emergency Provider Emergency Medicine; PCP Emergency Medicine
DX: J44.1 Chronic obstructive pulmonary disease with (acute) exacerbation (principal); F17.210 Nicotine dependence, cigarettes, uncomplicated; I25.10 Atherosclerotic heart disease of native coronary artery without angina pectoris
CPT/HCPCS: 71046; 80053; 82803; 83605; 84484; 85025; 86140; 87040; 87636; 93005; 96361; 96365; 96375; 99284; J0456

== ENCOUNTER 2023-02-27 19:04 | Outpatient (CLI) | payer MEDICAID, SELFPAY ==
[2023-02-27 20:51] LABS: Amphetamine/Metha Screen,Urine Negative ng/ml (<1000); Barbiturates Screen,Urine Negative ng/ml (<200); Benzodiazepines Screen,Urine Negative ng/ml (<200); Cannabinoid Screen,Urine Negative ng/ml (<50); Cocaine Screen,Urine Negative ng/ml (<300); Methadone Screen,Urine Negative ng/ml (<300); Opiate Screen,Urine Negative ng/ml (<300); Phencyclidine Screen,Urine Negative ng/ml (<25)
== END 2023-02-27 23:59 ==
LOC: LAB.DROPOF 19:05
PROVIDERS: Visit Provider Family Medicine
DX: Z79.899 Other long term (current) drug therapy (principal)
CPT/HCPCS: 80307

== ENCOUNTER 2023-03-21 12:26 | Outpatient (CLI) | payer MEDICAID, SELFPAY | END 2023-03-21 23:59 | LOC: RAD 12:26 | PROVIDERS: Visit Provider Family Medicine | DX: I20.89 Other forms of angina pectoris (principal); R06.09 Other forms of dyspnea; R53.83 Other fatigue ==

== ENCOUNTER 2023-04-15 12:27 | Outpatient (CLI) | payer MEDICAID, SELFPAY ==
--- NOTE | 2023-04-15 | CA_ITS ---
APPROVED REPORT Exam: Pharmacologic Technologist: Patti Gibson, Ht: 5 ft 5 in Wt: 142 lbs BSA: 1.71 m2 HR: 55 bpm BP: 122/59 mmHg Rhythm: sinus bradycardia Medical History Medications: Aspirin,,,,, Gabapentin,,,,, Atorvastatin,,,,, TAMSULOSIN,,,,, Albuterol,,,,, BRILINTA,,,,, ProSCAR,,,,, SilDENAFIL,,,,, EnTRESTO,,,,, BREztri,,,,, Cardiac Risk Factors: Hyperlipidemia, FHX of CAD, Smoking Stress Test Details Test: LEXISCAN HR Resting HR: 59 bpm Max Heart Rate (APMHR): 160 bpm Max HR Achieved: 81 bpm Target HR (85% APMHR): 136 bpm % of APMHR: 51 Recovery HR: 67 bpm BP Resting BP: 122/59 mmHg Max BP: 128/61 mmHg Recovery BP: 106.0/62.0 mmHg ECG Resting ECG: sinus bradycardia Stress ECG: No ST changes Arrhythmia: None Clinical Exercise duration: 04:15 min Highest Stage Achieved: Exercise capacity: 1.0 METs Stress ECG Conclusion During lexiscan pt experinced dyspnea. No arrhythmias noted. ST changes: none Conclusion: EKG portion unremarkable due to lexiscan infusion. Myoview images are reported separately. Test Summary REST . . . . . . . Sitting REST 02:05 . . 59 . 122/ 59 . . Stage 1 . . . . . . . Myoview Injected Stage 1 01:00 . . 77 . . . . Stage 2 01:00 . . 77 . 128/ 61 . . Stage 3 01:00 . . 71 . 112/ 59 . . Stage 4 01:00 . . 70 . 119/ 58 . . Stage 4 01:15 . . 68 . 114/ 59 . Stop exercise at 04:15 RECOVERY 01:00 . . 68 . . . . RECOVERY 02:00 . . 66 . 106/ 62 . . RECOVERY 02:38 . . 71 . 123/ 54 . . Electronically signed by : Zoey Orta MD 04/19/2023 22:35:43
--- NOTE | 2023-04-15 12:27 | NM_ITS ---
APPROVED REPORT Exam: Nuclear Stress Test Indication: CAD, H/O OK, TOB USE, FM HX, SOB Patient Location: Outpatient Stress Tech: Patti Gibson NM Tech:Allyson White, ARRT, RT (R)(N) Ht: 5 ft 5 in Wt: 140 lbs HR: 59 bpm BP: 122/59 mmHg BSA: 1.70 m2 Rhythm: NSR TID: 1.15 BMI: 23.2 History: CAD, H/O OK, TOB USE, FM HX, SOB Procedure: Patient received 0.4 mg of intravenous Lexiscan, resting heart rate 59 bpm, resting blood pressure 122/59 mmHg, with Lexiscan maximum heart rate achieved was 81 bpm which is % of the maximum predicted heart rate and blood pressure was 128/61 mmHg. With Lexiscan, patient denied any complaint of chest pain. Cardiac Stress and Resting SPECT Images: Cardiac Stress and Resting SPECT images were obtained using technetium 99m Myoview 32.1 mCi stress and 10.51 mCi at rest. Resting and stress imaging in supine and prone positions demonstrate no evidene of fixed or reversible perfusion defects. Gated imaging demonstrates mild reduction in global LV systolic function. LVEF is calculated at 47%. The LVEF may be inaccurate due to technical limitations. Conclusion: No evidene of fixed or reversible perfusion defects. Gated imaging demonstrates mild reduction in global LV systolic function. LVEF is calculated at 47%. The LVEF may be inaccurate due to technical limitations. Electronically signed by : Zoey Orta MD 04/19/2023 22:39:13
--- NOTE | 2023-04-15 13:26 | CA_ITS ---
APPROVED REPORT EXAM: Comprehensive 2D, Doppler, and color-flow Echocardiogram [employer] Counter Person: Bev Mcdermott, RCS, RVS Ht: 5 ft 5 in Wt: 142lbs BSA: 1.71 BP: 140/80 mmHg Indications: CAD-stent, Smoker, hx-MIx2 2D Dimensions Aortic Root 2.94 cm M: 3.1 - 3.7 LA Volume 59.20 mL Left Atrium 3.13 cm M: 3.0 - 4.0 LA Volume Index 34.60 mL/m2 (M/F) 16-34 RVID Base (AP4) 3.85 cm (M/F) 2.5-4.1 EF AP4 56.90 % LVOT 1.72 cm (M/F) 1.5-2.5 GL Strain 0.0 % M-Mode Dimensions RVDd 2.16 cm (0.9-2.6) LVDd 5.53 cm (3.5-5.7) Ao Diam 3.16 cm (2.0-3.7) LVDs 3.86 cm (3.5-5.7) IVSd 0.64 cm (0.6-1.1) PWd 0.80 cm (0.6-1.1) EF (Teich) 56.90% EPSs 1.11 cm FS 30.20% EDV (Teich) 149.30 mL TAPSE 2.52 (<1.7) ESV (Teich) 64.30 mL LV Diastology E Decel Time 197 (160-240 msec) E/A Ratio 1.68 MED E' 11.6 (>= 7 cm/sec) MED A' 10.60 cm/s E'/MED E' Ratio 8.71 (<= 14) LAT E' 12.7 (>= 10 cm/sec) LAT A' 8.50 cm/s E/LAT E' Ratio 7.95 (<= 14) Aortic Valve LVOT Max 78.0 (70-110 cm/s) CARL Index 0.58 cm2/m2 LVOT VTI 19.65 cm AoV Peak [place]. 179.0 (50-130 cm/s) AO Mean GR. 6.40 (<5 mmHg) AO VTI 45.6 (18-25 cm) CARL (VTI) 1.00 (2.5-4.5 cm2) Mitral Valve MV E Max [place]. 101.0 (40-130 cm/s) MV A Velocity 60.0 (40-130 cm/s) E/A Ratio 1.68 MV Decel. Time 197 (160-240 ms) Tricuspid Valve TR P. Velocity 264.00 cm/s Left Ventricle The left ventricle is normal size. The left ventricular systolic function is normal. The left ventricular ejection fraction is within the normal range. There is normal left ventricular wall thickness. There is normal LV segmental wall motion. The left ventricular diastolic function is normal. LVEF is 60%. Right Ventricle The right ventricle is normal size. The right ventricular systolic function is normal. Atria The left atrium size is normal. The right atrium size is normal. There is no Doppler evidence of interatrial shunt. Aortic Valve The aortic valve opens well. There is no aortic valvular stenosis. No aortic regurgitation is present. Mitral Valve The mitral valve is normal in structure. No evidence of mitral valve stenosis. There is no mitral valve regurgitation noted. Tricuspid Valve The tricuspid valve leaflets are thin and pliable. Mild tricuspid regurgitation. RVSP is normal. Pulmonic Valve The pulmonary valve is normal in structure. Trace pulmonic regurgitation. Great Vessels The aortic root is normal in size. The ascending aorta is not well visualized. IVC is normal in size and collapses >50% with inspiration. Pericardium There is no pericardial effusion. Other Information Study Quality: Adequate Conclusion Normal biventricular systolic function. No significant valvular stenosis or regurgitation. Electronically signed by : Zoey Orta MD 04/18/2023 15:08:02
[2023-04-15] MEDS: REGADENOSON 0.4MG/5ML SYRINGE 0.400000000000000022 MG IV (13:36)
[2023-04-15] MEDS: SODIUM CHLORIDE 0.9% 10ML SYR (RAD ONLY) 10 ML IV ×2 (13:36)
[2023-04-15] MEDS: ISOTOPE MYOVIEW (PER STUDY) 1 DOSE IV (13:36)
== END 2023-04-15 23:59 ==
LOC: RAD 12:27
PROVIDERS: PCP Family Medicine; Visit Provider Family Medicine
DX: I20.89 Other forms of angina pectoris (principal); R06.09 Other forms of dyspnea; R53.83 Other fatigue; F17.210 Nicotine dependence, cigarettes, uncomplicated
CPT/HCPCS: 78452; 93017; 93018; 93306; A9502; J2785

== ENCOUNTER 2023-12-18 11:40 | Outpatient (CLI) | payer MEDICARE, SELFPAY ==
[2023-12-18 20:13] LABS: Basophils # 0.1 K/mm3 (0-0.2); Basophils % 0.9 % (0.1-2.0); Eosinophils # 0.3 K/mm3 (0.0-0.4); Eosinophils % 3.5 % (0.1-12.0); Hematocrit 42.2 % (42.0-52.0); Hemoglobin 13.8 g/dL (14.1-18.0); Lymphocytes # 1.4 K/mm3 (0.7-4.5); Lymphocytes % 17.6 % (10-50); Mean Corpuscular HGB Conc 32.8 g/dL (31.8-35.4); Mean Corpuscular Hemoglobin 31.5 pg (27.0-31.2); Mean Corpuscular Volume 95.9 fl (80-94); Mean Platelet Volume 8.7 fl (7.4-10.4); Monocytes # 0.5 K/mm3 (0.1-1.0); Neutrophils # 5.8 K/mm3 (1.8-7.8); Neutrophils % 71.9 % (37.0-80.0); Platelet Count 260 K/mm3 (142-424); White Blood Count 8.1 K/mm3 (4.8-10.8)
[2023-12-18 20:21] LABS: Alanine Aminotransferase 18 U/L (12-78); Albumin Level 3.9 g/dl (3.5-5.0); Albumin/Globulin Ratio 1.9 (1.1-1.8); Alkaline Phosphatase 51 U/L (38-126); Anion Gap 11.8 mEq/L (5-15); Aspartate Amino Transferase 26 U/L (17-59); Bilirubin,Total 0.4 mg/dl (0.2-1.3); Blood Urea Nitrogen 10 mg/dl (9-20); Calcium 8.8 mg/dl (8.4-10.2); Carbon Dioxide 26 mmol/L (22.0-30.0); Chloride 109 mmol/L (98-107); Chol/HDL Ratio 3.1 (1-3.5); Cholesterol 127 mg/dl (140-200); Estimated Glomerular Filt Rate 98 ml/min (>60); GFR (African American) 119 ML/MIN (>60); Globulin 2.1 g/dL (1.3-3.2); Glucose 79 mg/dl (74-100); HDL Cholesterol 41 mg/dl (40-60); Potassium 4.8 mmoL/L (3.5-5.1); Sodium 142 mmol/L (136-145); Triglycerides 63 mg/dl (30-150); VLDL Cholesterol 13 mg/dL (0-40)
[2023-12-18 20:32] LABS: Direct LDL Cholesterol 78.89 mg/dL (100-129)
[2023-12-18 20:52] LABS: Prostate Specific Ag Screen 0.8 ng/ml (0.0-4.0)
[2023-12-18 21:18] LABS: HIV (1&2) Antibody Rapid NONREACTIVE (NONREACTIVE)
[2023-12-20 05:11] LABS: HBsAg Screen Negative (Negative); HCV Ab Non Reactive (Non Reactive); Hep A Ab, IGM Negative (Negative); Hep B Core Ab, IgM Negative (Negative)
== END 2023-12-18 23:59 | disposition home or self-care (01) ==
LOC: LAB.DROPOF 12-19 09:33
PROVIDERS: PCP Family Medicine; Visit Provider Family Medicine
DX: E78.5 Hyperlipidemia, unspecified (principal); R53.83 Other fatigue; Z12.5 Encounter for screening for malignant neoplasm of prostate
CPT/HCPCS: 80053; 80061; 80074; 85025; 87389; G0103

== ENCOUNTER 2024-01-21 15:00 | Outpatient (RCR) | payer MEDICARE, SELFPAY ==
--- NOTE | 2024-01-05 13:42 | HMH.PTOPEV ---
PT Outpatient Evaluation Rehab PT Outpatient Evaluation Start: 01/05/24 13:03 Freq: Status: Active Protocol: Document 01/05/24 13:29 DARIA (Rec: 01/05/24 13:42 DARIA [id number]) E-signed By Dionicio Cannon, PT Outpatient Therapy Subjective History Subjective History Pt is a 63 yom who presents to [facility] outpatient therapy due to LBP that began nearly 10 years ago of insidious onset. He reports that approximately 6 months ago it began to worsen. He reports that it constantly feels like there is an ache in his back, but he will occasionally move in a certain way that will cause his back to spasm and almost bring me to my knees. The patient reports that both sides of his back will hurt but sometimes one side more than the other. He reports diffuclty bending, lifting objects from the ground and squatting. He reports no falls or traumatic incidents. New diagnosis of cancer in past 12 No months? Chief Complaint Pain,Spasms,Stiff Symptom Type Ache,Sharp Symptoms Relieved By Heat Symptoms Aggravated By Sitting,Standing,Bending/ Stooping,Physical Activity, Twisting Prior Functional Limitations None Current Functional Limitations Lifting,Housework,Sitting, Squatting Symptom Description Constant but Variable Level of pain today (0-10) 3 Pain scale - at its best (0-10) 3 Pain scale - at its worst (0-10) 10 Lumbopelvic Eval Posture Thoracic Spine Posture Standing Position Increased Kyphosis Lumbar Spine Posture Standing Position Flattened Assistive device Assistive Devices None / NA Gait Observation General Gait Pattern Observation Antalgic Gait,Wide Based Gait Palapation tenderness bilateral lumbar spinal tenderness Yes: 3/4 paraspinal tenderness Yes: 3/4 Lumbar/Sacral Palpation Findings Tenderness,Spasm Accessory Movement T-spine Vertebrae Accessory Movements Central P/A Sel[place] that Elicit Symptoms T10 bilateral T11 bilateral T12 bilateral L2 bilateral L3 bilateral Range of Motion Lumbar Spine Active Flexion Range of 100% WNL Motion (degrees) Lumbar Spine Active Extension Range of 25% Motion (degrees) Left Lumbar Spine Lateral Flexion Active 50% Range of Motion (degrees) Right Lumbar Spine Lateral Flexion 50% Active Range of Motion (degrees) Lumbar Spine ROM Limitations Soft Tissue Tightness,Pain Manual Muscle Test Bilateral Knee Extension Strength Grade 4 Good Knee Flexion Strength Grade 4 Good Hip Flexion Strength Grade 4- Good- Hip Abduction Strength Grade 4- Good- Hip Extension Strength Grade 4- Good- DTR Rt Patellar 2+ Lt Patellar 2+ Rt Gastroc/Soleus 2+ Lt Gastroc/Soleus 2+ Special Tests Hip Scouring (Quadrant) Test Negative Left,Negative Right Hip Addy (MADELINE) Test Negative Left,Negative Right Unilateral Straight Leg Raise (Lasegue) Negative Left,Negative Right Test Crossed Straight Leg Raise Test Negative Left,Negative Right Sacroiliac Joint Compression Test Negative Left,Negative Right Sacroiliac Joint Distraction Test Negative Left,Negative Right Lumbar Long [place] Distraction Test/Manual Negative Traction Oswestry Index Section 1 Pain Intensity The pain comes and goes and is moderate Section 2 Personal Care (Washing,Dresing) my way of washing or dressing even though it causes some pain Section 3 Lifting Pain prevents me from lifting weights off the floor Section 4 Walking I cannot walk more than one mile wihtout increasing pain Section 5 Sitting Pain prevents me from sitting for more than 1/2 hour Section 6 Standing I cannot stand more than 1 hour without increasing pain Section 7 Sleeping Because of my pain, my normal night's sleep is less than 6 hours sleep Section 8 Social Life Pain has no significant effect on my social life apart from limiting Section 9 Traveling I get extra pain while traveling, but it does not compel me to seek al Section 10 Changing Degreee of Pain My pain is gradually getting worse Score and Risk Level Oswestry Sc 22 Oswestry Risk Level Moderate Disability Miscellaneous Dx PT Eval Objective Objective Trp and hypomobility to T11-L3 Bilaterally Outpatient Therapy Assessment Impairments Problems/Impairmments Palpation Tenderness,Impaired Range of Motion,Impaired Strength,Impaired Lifting, Impaired Squatting,Subjective C/O Pain Prognosis Rehab Potential Good Clinical Impression Consistent with Diagnosis Yes Short Term Goals Number of Weeks 4 Decreased Palpation Tenderness Yes: 2/4 Increase Range of Motion Yes: 75% WNL Increase Strength Yes: 4/5 to hip/knee B Increase Ability to Stand Yes: 30 minutes 2/10 pain Improve Oswestry Score Yes: to 15 Decrease Subjective C/O Pain Yes: 6/10 at worst Patient to be Ind w/ HEP Yes Halfway Goals Number of Weeks 8 Decreased Palpation Tenderness Yes: 0/4 Increase Range of Motion Yes: 100% WNL Increase Strength Yes: 5/5 to hip/knee B Improve Gait Pattern without Assistive Yes: No gait abnormalities Device Increase Ability to Stand Yes: 1 hour no pain Improve Oswestry Score Yes: to 10 Decrease Subjective C/O Pain Yes: 3/10 at worst Patient to be Ind w/ Advanced HEP Yes Outpatient Therapy Plan of Care Treatment Plan May Include Therapeutic Exercise Including Home Yes Exercise Program Manual Therapy Techniques Yes Neuromuscular Re-education Yes Therapeutic Activities to Return to Yes Previous Functional/Work Level Gait Training Yes ADL/Self Care Education Yes Mechanical Traction Yes Dry Needling Yes Thermal Modalities Yes Electrical Stimulation Yes Ultrasound/Phonophoresis Yes Massage Yes Eval/Re-Eval Yes Frequency Times per week 2-3 Duration Number of Weeks 8 Addendums This patient is a candidate for social No or vocational rehab? Patient/Guardian verbally acknowledges Yes understanding of treatment program and consents to further treatment? Patient/Guardian verbally acknowledges Yes understanding of diagnosis, prognosis and goals for treatment? Eval Complexity PT Charges 06910 - Moderate Complexity Shoulder/Elbow Eval Shoulder Objective Measurements Elbow Objective Measurements PHYSICIAN CERTIFICATION: I certify the specified therapy services for Frantz Magana SR are required, authorized, and reviewed every 30 days.
== END 2024-01-21 23:59 | disposition home or self-care (01) ==
LOC: PT 15:00
PROVIDERS: Visit Provider Family Medicine
DX: M54.16 Radiculopathy, lumbar region (principal); G95.19 Other vascular myelopathies
CPT/HCPCS: 97163

== ENCOUNTER 2024-01-30 13:40 | Outpatient (CLI) | payer MEDICARE, SELFPAY ==
--- NOTE | 2024-01-30 13:43 | XR_ITS ---
FINAL REPORT CLINICAL HISTORY: Low back pain COMPARISON: 04/27/2019 FINDINGS: 3 views of the lumbar spine were obtained. There is no evidence of fracture. There is no malalignment. There are mild to moderate degenerative changes. There is L5-S1 disc space narrowing. There are mild vascular calcifications. IMPRESSION: Degenerative changes without acute process. Reviewed, Interpreted and Dictated by Rishi Craig III, MD Transcribed by Janna Carl Authenticated and [facility]
== END 2024-01-30 23:59 | disposition home or self-care (01) ==
LOC: RAD 13:41
PROVIDERS: PCP Family Medicine; Visit Provider Family Medicine
DX: M54.16 Radiculopathy, lumbar region (principal); G95.19 Other vascular myelopathies
CPT/HCPCS: 72100

== ENCOUNTER 2024-02-16 13:49 | Outpatient (CLI) | payer MEDICARE, SELFPAY ==
--- NOTE | 2024-02-16 13:50 | CA_ITS ---
APPROVED REPORT EXAM: Comprehensive 2D, Doppler, and color-flow Echocardiogram Cell Plasterer: Luz Batres RDCS Ht: 5 ft 5 in Wt: 144lbs BSA: 1.72 BP: 108/65 mmHg Indications: GONCALVES,COPD,CAD M-Mode Dimensions RVDd 1.87 cm (0.9-2.6) LVDd 5.52 cm (3.5-5.7) LVDs 3.62 cm (3.5-5.7) IVSd 0.79 cm (0.6-1.1) PWd 0.75 cm (0.6-1.1) EF (Teich) 62.90% FS 34.40% EDV (Teich) 148.70 mL ESV (Teich) 55.20 mL LV Diastology E Decel Time 173 (160-240 msec) E/A Ratio 1.4 Aortic Valve CARL Index 1.00 cm2/m2 AoV Peak [place]. 151.0 (50-130 cm/s) AO Peak GR. 9.10 mmHg AO Mean GR. 4.50 (<5 mmHg) AO VTI 30.3 (18-25 cm) CARL (VTI) 1.76 (2.5-4.5 cm2) Mitral Valve MV E Max [place]. 86.0 (40-130 cm/s) MV A Velocity 61.0 (40-130 cm/s) E/A Ratio 1.41 MV PHT 51.0 ms Left Ventricle The left ventricle is normal size. The left ventricular systolic function is normal. The left ventricular ejection fraction is within the normal range. There is normal left ventricular wall thickness. There is normal LV segmental wall motion. The left ventricular diastolic function is normal. LVEF is 55%. Right Ventricle Right ventricle is mildly dilated. The right ventricular systolic function is normal. Atria The left atrium size is normal. The right atrium size is normal. There is no Doppler evidence of interatrial shunt. Aortic Valve The aortic valve is mildly thickened. There is no aortic valvular stenosis. No aortic regurgitation is present. Mitral Valve Mild mitral annular calcification. The mitral valve leaflets are mildly thickened. No evidence of mitral valve stenosis. Trace mitral regurgitation. Tricuspid Valve The tricuspid valve leaflets are thin and pliable. Mild tricuspid regurgitation. RVSP is normal. Pulmonic Valve The pulmonary valve is normal in structure. Trace pulmonic regurgitation. Great Vessels The aortic root is not well-visualized. IVC is normal in size and collapses >50% with inspiration. Pericardium There is no pericardial effusion. Other Information Study Quality: Fair Conclusion Normal biventricular systolic function. Mild RV dilation. Mild TR. Electronically signed by : Zoey Orta MD 03/01/2024 13:35:58
--- NOTE | 2024-02-16 14:14 | CT_ITS ---
FINAL REPORT TECHNIQUE: Thin section axial images were obtained through the lungs using a low-dose technique per lung cancer screening protocol. Reconstruction images were obtained using the axial data. Exam was performed using dose reduction technique. CLINICAL HISTORY: lung cancer screening SMOKER 40 YEARS, 1PPD COPD, EMPHYSEMA COMPARISON: 11/22/2022, 10/11/2021 FINDINGS: CTDLvol: 2.9 DLP: 109.94 63-year-old male, current smoker 40 pack year history Lungs: There are reticulonodular opacities present in the inferior right upper lobe and the peripheral right middle lobe. These opacities are new since the prior CT of 11/22/2022, favor infectious or inflammatory etiology. Small nodules noted in the left upper lobe on the prior CT are unchanged, none greater than 4 mm in size. There is evidence of prior granulomatous disease. Lymph nodes: There is a stable subcarinal lymph node once again noted, otherwise no adenopathy is present. Mediastinum: Heart size is normal. Pleura/pericardium: No pleural or pericardial effusion. Other: No acute abnormality in the upper abdomen. IMPRESSION: Reticulonodular opacities in the inferior right upper lobe in the peripheral right middle lobe, new since the prior CT. Favor infectious or inflammatory etiology. No significant change in the small nodules in the left upper lobe, none greater than 4 mm in size. Lung RADS: 0 Recommendation: Consider 3 to 6-month follow-up CT. Reviewed, Interpreted and Dictated by Estephanie Alexander MD Transcribed by Sabine Arreaga Authenticated and [facility]
== END 2024-02-16 23:59 | disposition home or self-care (01) ==
LOC: RT 13:49
PROVIDERS: PCP Family Medicine; Visit Provider Family Medicine
DX: I36.1 Nonrheumatic tricuspid (valve) insufficiency (principal); I51.7 Cardiomegaly; I42.9 Cardiomyopathy, unspecified; F17.210 Nicotine dependence, cigarettes, uncomplicated
CPT/HCPCS: 71271; 93306

== ENCOUNTER 2024-08-18 15:02 | Emergency (ER) | payer MEDICARE, SELFPAY ==
[2024-08-18 15:05] VITALS: BP 128/67; PULSE 97; RESP 15; TEMP 36.9; O2SAT 94; BMI 22.4
--- OUTSIDE RECORDS SUMMARY | 2024-08-18 15:28 | XMS_ITS | Clinical Summary ---
Author Organization Healthcare Address [address] [place] [address] Care Team Providers Care Nursing Home Physician Name Role Phone Jose Miguel Vieira MD Primary Care Provider + [phone] Allergies No known active allergies Medications ipratropium-alb uterol (Duo-Neb) 0.5-2.5 mg/3 mL nebulizer solution Take 3 mL by nebulization every 6 (six) hours if needed for wheezing. 180 mL Active Social History Tobacco Use Types Packs/Day Years Used Date Smoking Tobacco: Every Day Alcohol Use Standard Drinks/Week Comments Yes 0 (1 standard drink = 0.6 oz pur e alcohol) CAGE ASSESSMENT Answer Date Recorded Cage unable to access Not on file 09/01/2021 Maximum number of drinks you had on a given occasion in the last month? 0 drinks 09/01/2021 How many alcoholic Beverages do you typically drink in a week? 0 - 7 per week 09/01/2021 Have you ever felt you should CUT down on your d rinking? 0 09/01/2021 Have you been ANNOYED by peo ple criticizing your drinking? 0 09/01/2021 Have you felt GUILTY about your drinking? 0 09/01/2021 Have you had a drink first t la nena in the morning ([employer]LY[employer]) to steady your nerves or to get rid of a hangover? 0 09/01/2021 CAGE Questionnaire Score 0 022 Sex and Gender Information Value Date Recorded Sex Assigned at Not on file Legal Sex Male 8:20 PM EDT Gender Identity Not on file Sexual Orientation Not on file Last Filed Vital Signs Vital Sign Reading Time Taken Comments Blood Pressure 88/49 09/01/2021 12:15 PM EDT Pulse 57 09/01/2021 12:15 PM EDT Temperature 35.6 C (96 F) 09/01/2021 8:16 AM EDT Respiratory Rate 10 09/01/2021 12:15 PM EDT Oxygen Saturation 94% 09/01/2021 12:15 PM EDT Inhaled Oxygen Concentration - - Weight 61 kg (134 lb 7.7 oz) 09/01/2021 8:16 AM EDT Height 167.6 cm (5' 6 ) 09/01/2021 8:16 AM EDT Body Mass Index 21.71 09/01/2021 8:16 AM EDT Plan of Treatment Health Maintenance Due Date Last Done Comments [facility]-Depression Screening 1962 [facility]-HIV Screening 1962 [facility]-Hepatitis C Screening 1962 [facility]-/Child/Adol SDOH Screenings 1962 [facility]- SDOH Screenings 1980 [facility]-Adult SDOH Screenings 1980 [facility]-DTaP,Tdap,and Td Vaccine s (1 - Tdap) 1981 CT Colonography 05/01/2007 Colonoscopy 05/01/2007 FIT-DNA 05/01/2007 FIT 05/01/2007 FOBT 05/01/2007 Sigmoidoscopy 05/01/2007 [facility]-Colorectal Cancer Screening 05/01/2007 [facility]-Pneumococcal Vaccine: 50 + Years (1 of 1 - PCV) 2012 [facility]-Zoster Vaccines (1 of 2) 2012 [id number] Vaccine (1 - 20 24-25 season) 2023 [facility]-Influenza Vaccine (Seaso n Ended) 2024 [facility]-RSV Vaccine: 60+ Years o r (1 - 1-dose 75+ series) 2037 HPV Vaccines Aged Out No longer eligi ble based on patient's age to complete this topic [facility]-HIB Vaccines Aged Out No longer e ligible based on patient's age to complete this topic [facility]-Hepatitis A Vaccines Aged Out No longer eligible based on patient's age to complete this topic [facility]-IPV Vaccines Aged Out No longer e ligible based on patient's age to complete this topic [facility]-Rotavirus Vaccines Aged Out No lo nger eligible based on patient's age to complete this topic Care Teams Nursing Home Physician Relationship Specialty Start Date End Date Jose Miguel Vieira MD [address] [phone] PCP - General 06/30/20
[2024-08-18 15:30] VITALS: BP 107/56; PULSE 86; O2SAT 92
--- NOTE | 2024-08-18 15:39 | ED_ITS ---
<Statement entered by Clyde Tejeda MD - 08/18/24 21:30> I was consulted by the ERIKA, and we discussed the complexity of the problems being addressed. I approved the treatment and management plan for this patient's care in the emergency department, thus performing a substantive portion of the medical decision making. Clyde Tejeda MD, SERGIO, FACEP Discharge Plan Disposition Patient Disposition: Home, Self-Care Condition: Good Prescriptions Prescriptions: No Action lidocaine 5 % adhesive patch,medicated 1 patch topical DAILY PRN (Reason: shoulder pain) Qty: 30 2RF Rx Instructions: leave on most painful area for up to 12 hrs nitroglycerin 0.4 mg tablet, sublingual 0.4 mg sublingual Q5-15M PRN (Reason: chest pain) Qty: 30 1RF Rx Instructions: do not exceed 3 doses per episode aspirin 81 mg tablet,chewable 81 mg PO DAILY Qty: 90 8RF atorvastatin 80 mg tablet See Rx Instructions .ROUTE .COMPLEX Qty: 90 6RF Dose Instruction: TAKE ONE TABLET BY MOUTH AT BEDTIME Rx Instructions: TAKE ONE TABLET BY MOUTH AT BEDTIME varenicline tartrate 0.5 mg (11)- 1 mg (42) tablets,dose pack See Rx Instructions PO PER PKG DIR Qty: 53 0RF Rx Instructions: PO PER PKG DIR promethazine-DM 6.25-15 mg/5 mL syrup 5 ml PO Q6H Qty: 600 0RF sildenafil (pulm.hypertension) 20 mg tablet See Rx Instructions .ROUTE .COMPLEX Qty: 30 0RF Rx Instructions: take 1 to 2 tablets qhs prn; buprenorphine-naloxone 8-2 mg tablet, sublingual sublingual Breztri Aerosphere 160-9-4.8 mcg/actuation HFA aerosol inhaler See Rx Instructions .ROUTE .COMPLEX Qty: 10.7 5RF Dose Instruction: INHALE 2 PUFFS BY MOUTH 2 TIMES A DAY Rx Instructions: INHALE 2 PUFFS BY MOUTH 2 TIMES A DAY albuterol sulfate 90 mcg/actuation HFA aerosol inhaler See Rx Instructions .ROUTE .COMPLEX Qty: 8.5 6RF Dose Instruction: INHALE 2 PUFFS BY MOUTH EVERY 4 TO 6 HOURS NEEDED FOR BREATHING Rx Instructions: INHALE 2 PUFFS BY MOUTH EVERY 4 TO 6 HOURS NEEDED FOR BREATHING Entresto 24-26 mg tablet See Rx Instructions .ROUTE .COMPLEX Qty: 60 6RF Dose Instruction: TAKE ONE TABLET BY MOUTH 2 TIMES A DAY Rx Instructions: TAKE ONE TABLET BY MOUTH 2 TIMES A DAY tamsulosin 0.4 mg capsule See Rx Instructions .ROUTE .COMPLEX Qty: 90 3RF Dose Instruction: TAKE ONE CAPSULE BY MOUTH ONCE A DAY Rx Instructions: TAKE ONE CAPSULE BY MOUTH ONCE A DAY Brilinta 90 mg tablet See Rx Instructions .ROUTE .COMPLEX Qty: 60 4RF Dose Instruction: TAKE ONE TABLET BY MOUTH 2 TIMES A DAY Rx Instructions: TAKE ONE TABLET BY MOUTH 2 TIMES A DAY finasteride 5 mg tablet See Rx Instructions .ROUTE .COMPLEX Qty: 90 2RF Dose Instruction: TAKE ONE TABLET BY MOUTH ONCE A DAY Rx Instructions: TAKE ONE TABLET BY MOUTH ONCE A DAY Referrals Follow up/Referrals: Provider,Referral, MD [Referring, Medical] - See instructions Activity Restrictions/Add. Instructions Additional Instructions/Restrictions: Today you were evaluated in the emergency department for lacerations. The reciprocating saw removed the skin over the laceration so I am unable to close it. We have cleaned it several times in the ED, we have updated your tetanus vaccination. We have placed antibiotic ointment over the wound and dressed it with a nonadherent dressing. Please leave the dressing on for 24 hours. Follow-up with your PCP. Return to the ED for any worsening of condition. Clinical Impressions Clinical Impression: Laceration Instructions Patient Instructions: DI for Laceration Repair Print Language Print Language: Irish Discharge ED Provider: Lamine Villalba Adult HPI General Chief complaint: Wound/Laceration Stated complaint: laceration Time Seen by Provider: 08/18/24 15:22 Mode of Arrival: Ambulatory Source of Information: Patient Description of Symptoms (Recalled from ER Triage Doc. by RN): patient states he was using a saw jared and cut his right forarm open. is on blood thinner History of Present Illness HPI narrative: patient is a 64-year-old male PMHx cardiomyopathy, tobacco use, COPD, CAD who presents to the ED with complaints of multiple lacerations on his right arm that occurred prior to arrival. Patient states that his tetanus is not up-to-date. Related Data Home Medications ?Medication ?Instructions ?Recorded ?Confirmed buprenorphine 8 mg-naloxone 2 mg tab sublingual 02/19/24 sublingual tablet Previous Rx's ?Medication ?Instructions ?Recorded sildenafil (pulm.hypertension) 20 See Rx Instructions .Route 08/14/22 mg tablet .COMPLEX #30 tabs lidocaine 5 % topical patch 1 patch topical DAILY PRN shoulder 05/01/23 pain #30 ea nitroglycerin 0.4 mg sublingual 0.4 mg sublingual Q5-1 5M PRN chest 05/14/23 tablet pain #30 tabs aspirin 81 mg chewable tablet 81 mg PO DAILY Blood thi nner #90 08/11/23 tabs atorvastatin 80 mg tablet See Rx Instructions .Route 0 08/11/23 .COMPLEX #90 tabs budesonide 160 mcg-glycopyr 9 See Rx Instructions .Rou te 02/09/24 mcg-formot 4.8 mcg/actuation HFA .COMPLEX #10.7 grams inhaler (Breztri Aerosphere) promethazine-DM 6.25 mg-15 mg/5 mL 5 ml PO Q6H #600 mL 02/19/24 oral syrup varenicline tartrate 0.5 mg (11)-1 See Rx Instructions PO PER PKG DIR 02/19/24 mg (42) tablets in a dose pack #53 tabs albuterol sulfate 90 mcg/actuation See Rx Instructions .Route 03/09/24 aerosol inhaler .COMPLEX #8.5 grams sacubitril 24 mg-valsartan 26 mg See Rx Instructions . Route 03/09/24 tablet (Entresto) .COMPLEX #60 tabs tamsulosin 0.4 mg capsule See Rx Instructions .Route 0 04/28/24 .COMPLEX #90 caps ticagrelor 90 mg tablet (Brilinta) See Rx Instructions .Route 04/28/24 .COMPLEX #60 tabs finasteride 5 mg tablet See Rx Instructions .Route 0 07/20/24 .COMPLEX #90 tabs Allergies Allergy/AdvReac Type Severity Reaction Status Date / Time No Known Allergies Allergy Verified 02/19/24 14:49 [facility] Disclaimer: The information contained in this section may have been updated after the patient was seen, as this information can be updated by other users. Medical History Acute non-ST elevation myocardial infarction (NSTEMI) Cough Dyspnea on exertion Tobacco abuse disorder Tobacco abuse counseling Screening for lung cancer Smoking greater than 30 pack years CAD (coronary artery disease) Non-ST elevation [place] (NSTEMI) Septic shock Severe sepsis with acute organ dysfunction Gastritis COPD (chronic obstructive pulmonary disease) Surgical History Status post right foot surgery History of coronary artery stent placement History of cardiac cath Family History Other Cancer Heart attack Social History Smoking Status: Current every day smoker tobacco type: cigarettes packs per day: 1 alcohol intake: never substance use type: former substance user, opiates and prescription drug current occupational status: employed Travel in the last 8 weeks?: None household members: none housing: house number of children: 5 current occupation: self employed caffeine: Yes Have you lived/traveled outside [place] in past 30 days?: No Contact w/someone who lives/traveled outside US past 30 days?: No Exposure to someone with infectious disease in past 14 days?: No Do you have a fever (greater than 100.4 F or 38 C)?: No Have you tested positive for COVID-19?: No Exposed to someone with COVID-19 in past 14 days?: No Do you have a sore throat?: No Do you have a cough?: No Do you have any weakness?: No Do you have any diarrhea?: No Are you experiencing any unusual bleeding?: No Do you have any muscle aches/pain?: No Do you have any abdominal pain?: No Are you experiencing loss of taste or smell?: No Other Medical History Have you received the Flu Vaccine for this season: No Have you received the Pneumonia Vaccine: No ROS Obtained: Yes Systems reviewed as appropriate & no additional complaints except as documented Physical Exam General General appearance: alert and in no apparent distress Head Head exam: atraumatic and normocephalic Eye Eye exam: Present normal appearance and PERRL ENT ENT exam: Present normal exam Neck Neck exam: Present normal inspection Chest Chest inspection: Present normal inspection and symmetric chest wall rise; Absent tenderness Respiratory Respiratory exam: Present normal lung sounds bilaterally Cardiovascular Cardiovascular exam: Present regular rate Abdominal Exam Abdominal exam: Present soft and normal bowel sounds; Absent tenderness Extremities Exam Extremities exam: Present normal inspection and full ROM Back Exam Back exam: Present normal inspection and full ROM Neurological Exam Neurological exam: Present alert and oriented X3 Psychiatric Psychiatric exam: Present normal affect and normal mood Skin Skin exam: Present warm and other (superficial laceration, approx 3 cm to anterior R forearm ) Medical Decision Making Medical Records Screening: Per USPSTF and CDC recommendations, given the prevalence of disease in our region, it is our hospital?s policy to screen for HIV and viral Hepatitis for all patients aged 18 and over and those with ongoing risk factors. Luis Inquiry Pt receiving controlled substance: No Vital Signs: 08/18/24 15:05 08/18/24 15:30 08/18/24 16:00 Temperature 98.4 F Temperature Source Oral Pulse Rate 86 75 Pulse Rate [Left Radial] 97 H Respiratory Rate 15 Blood Pressure 107/56 L 112/62 Blood Pressure [Left Arm] 128/67 Blood Pressure Mean [Left Arm] 87 Blood Pressure Source Blood Pressure Source [Left Arm] Automatic Cuff Blood Pressure Position [Left Arm] Sitting 02 Sat by Pulse Oximetry 94 L 92 L 96 Oxygen Delivery Method Room Air Room Air 08/18/24 16:32 Temperature 97.9 F Temperature Source Oral Pulse Rate 72 Pulse Rate [Left Radial] Respiratory Rate 14 Blood Pressure 112/62 Blood Pressure [Left Arm] Blood Pressure Mean [Left Arm] Blood Pressure Source Automatic Cuff Blood Pressure Source [Left Arm] Blood Pressure Position [Left Arm] 02 Sat by Pulse Oximetry Oxygen Delivery Method Room Air Orders (Tests/Meds): ED MEDICATIONS Discontinued Medications Generic Name Dose Route Start Last Admin Trade Name Freq PRN Reason Stop Dose Admin Acetaminophen 1,000 mg 08/18/24 15:33 08/18/24 15:54 Acetaminophen 500mg Tab PO 08/18/24 15:34 1,000 mg ONCE ONE Administration Tetanus/Diphtheria Toxoids 0.5 ml 08/18/24 15:34 08/18/24 15:54 Tetanus-Diphth Toxoid, Adult 0.5ml Syr IM 08/18/24 15:35 0.5 ml .ONCE ONE Administration Medical Decision Narrative: In summary, patient is a 64-year-old male PMHx cardiomyopathy, tobacco use, COPD, CAD who presents to the ED with complaints of multiple lacerations on his right arm that occurred prior to arrival by a reciprocating saw. Patient states that his tetanus is not up-to-date. He is currently taking blood thinners, has a pressure dressing on the lacerations upon arrival. Denies any numbness or tingling. Has full ROM of the right hand. Upon initial evaluation patient is alert, oriented and cooperative. He is pleasant. Upon initial evaluation, patient is alert and oriented and stable. Upon further evaluation of his laceration, I will be unable to close it as the skin is gone. It is a very superficial open area. After pressure dressing was removed from it there is no active bleeding. We cleaned the area with Hibiclens, iodine. Placed antibiotic ointment over it and applied nonadherent dressing. I discussed with patient he will need to follow-up with his PCP this week and we discussed signs and symptoms of infection. I placed the patient on oral antibiotics and we discussed return precautions to the ED. He was hemodynamically stable and ambulatory from the ED. Critical Care Critical Care Time Critical Care Time: No
--- NOTE | 2024-08-18 15:47 | PC.NURSE ---
Clean laceration with saline and hibacleans, wrapped tight for 30 minutes per Miya, LEGAL EXECUTIVE ASSISTANT by seda Bradley, EMT.
[2024-08-18] MEDS: ACETAMINOPHEN 500MG TAB 1000 MG PO (15:54)
[2024-08-18] MEDS: TETANUS-DIPHTH TOXOID, ADULT 0.5ML SYR 0.5 ML IM (15:54)
[2024-08-18 16:00] VITALS: BP 112/62; PULSE 75; O2SAT 96
[2024-08-18 16:32] VITALS: BP 112/62; PULSE 72; RESP 14; TEMP 36.6; O2SAT 98
== END 2024-08-18 16:31 | disposition home or self-care (01) ==
PROVIDERS: Emergency Provider Emergency Medicine; PCP Family Medicine
DX: S51.811A Laceration without foreign body of right forearm, initial encounter (principal); W31.2XXA Contact with powered woodworking and forming machines, initial encounter
CPT/HCPCS: 90471; 90714; 99283